=== PATIENT | male | born 2005 | race Caucasian/White ===

== ENCOUNTER 2024-06-02 02:58 | Inpatient (IN) | payer MEDICAID, SELFPAY ==
[2024-06-02] VITALS (52 sets, daily range): BP systolic 116–144; BP diastolic 66–98; PULSE 70–104; RESP 10–28; TEMP 36.6–36.9; O2SAT 84–99; BMI 33.6
[2024-06-02] MEDS: sodium chloride 0.9% 1,000 ML 999 ML IV (03:15)
--- NOTE | 2024-06-02 03:18 | ED_ITS ---
HPI - Overdose 2 General: Chief Complaint: Psychiatric Symptoms Stated Complaint: OD Time Seen by Provider: 06/02/24 03:01 History of Present Illness: 18-year-old male with a history of menta l illness. Presents after having taken 30 paroxetine 30 mg pills sometime between 10 and 11 PM. He complains of nausea, some stomach pain, and some chest discomfort. He notes that he has been hearing voices. These voices evidently telling him to hurt himself and other people. He has some abrasions on his left forearm. He says that despite taking the medication he is still hearing the voices. Related Data Allergies Allergy/AdvReac Type Severity Reaction Status Date / Time No Known Allergies Allergy Verified 06/02/24 03:25 Physical Exam 2 Const: COMMON NORMALS: no acute distress GENERAL APPEARANCE: cooperative; not ill appearing and not frail appearing HENMT: COMMON NORMALS: normocephalic, atraumatic and Normal external nose present HEAD & SCALP: normocephalic and atraumatic FACE & SINUS: normal facial exam and face symmetric NOSE: Normal external nose present Eye: COMMON NORMALS: Equal, round and reactive pupils present and EOMs intact bilaterally PUPIL: Yes Equal, round and reactive pupils present Neck/C-Spine: GENERAL: Yes trachea midline Chest: CHEST: Yes Symmetrical chest wall rise Resp: COMMON NORMALS: normal respiratory effort, No retractions, No use of accessory muscles and clear to auscultation bilaterally AUSCULTATION: clear to auscultation bilaterally Cardio: COMMON NORMALS: regular rate and regular rhythm RATE: regular rate RHYTHM: regular rhythm GI: COMMON NORMALS: Normal to inspection, nondistended, normoactive bowel sounds present Extremity: COMMON NORMALS: no pedal edema Neuro: JACOB COMA SCALE: document GCS findings Jacob coma scale eye opening: Spontaneous [place] coma scale verbal response: Orientated [place] coma scale motor response: Obey commands Jacob coma scale total score: 15 S ENSORY EXAM: Yes extremities (intact) Psych: COMMON NORMALS: speech normal SPEECH: Yes normal speech Skin: COMMON NORMALS: no rashes or lesions noted GENERAL SKIN EXAM: no rashes or lesions noted Course 2 Vital Signs: Vital signs: Vital Signs Temperature 97.9 F 06/02/24 03:20 Pulse Rate 90 06/02/24 03:53 Respiratory Rate 25 H 06/02/24 03:53 Blood Pressure 125/94 06/02/24 03:53 Pulse Oximetry 95 06/02/24 03:53 Oxygen Delivery Me thod Room Air 06/02/24 03:53 MDM - Overdose Medical Decision Making 18-year-old male intentionally overdosed on paroxetine. Approximately 900 mg, or a 30-day supply of paroxetine. Poison control contacted by nursing. The recommendations are supportive care. Patient is now having visual hallucinations as well. He is given lorazepam for this. He will have to go to the ICU for observation and medical clearance prior to psychiatric evaluation. Spoke with hospitalist who agrees to admission. Lab Data 06/02/24 02:25 06/02/24 02:25 Laboratory Results WBC 6.95 10^3/uL (4.5-13.0) 06/02/24 02:25 RBC 4.86 10^6/uL (3.85-5.65) 06/02/24 02:25 Hgb 14.10 g/dL (13.2-15.6) 06/02/24 02:25 Hct 40.4 % (37-53) 06/02/24 02:25 MCV 83.1 fl (82-101) 06/02/24 02:25 MCH 29.0 pg (27-33) 06/02/24 02:25 MCHC 34.9 g/dL (30-55) 06/02/24 02:25 RDW 12.8 % (12.1-15.1) 06/02/24 02:25 Plt Count 195 10^3/cmm (157-399) 06/02/24 02:25 MPV 9.4 fL (7.4-10.4) 06/02/24 02:25 Neut % (Auto) 51.5 % 06/02/24 02:25 Lymph % (Auto) 35.7 % 06/02/24 02:25 [place] % (Auto) 9.1 % 06/02/24 02:25 Eos % (Auto) 2.7 % 06/02/24 02:25 Baso % (Auto) 0.7 % 06/02/24 02:25 Neut # (Auto) 3.58 10^3/uL (1.8-8.0) 06/02/24 02:25 Lymph # (Auto) 2.5 10^3/uL (1.5-6.5) 06/02/24 02:25 [place] # (Auto) 0.6 10^3/uL (0.2-0.9) 06/02/24 02:25 Eos # (Auto) 0.2 10^3/uL (0.0-0.8) 06/02/24 02:25 Baso # (Auto) 0.1 10^3/uL (0.0-0.1) 06/02/24 02:25 Nucleated RBC % (auto) 0 % 06/02/24 02:25 Nucleated RBCs # 0.0 /100WBC 06/02/24 02:25 No radiology studies performed this visit Discharge Plan Discharge Patient Disposition: Placed in Observation Clinical Impression: Intentional overdose Condition: Stable Coding Level of Care Code ED Weed Controller for Iron Mcconnell
[2024-06-02 03:29] LABS: Basophils # 0.1 10^3/uL (0.0-0.1); Basophils % 0.7 %; Eosinophils # 0.2 10^3/uL (0.0-0.8); Eosinophils % 2.7 %; Hematocrit 40.4 % (37-53); Lymphocytes # 2.5 10^3/uL (1.5-6.5); Lymphocytes % 35.7 %; Mean Corpuscular HGB Conc 34.9 g/dL (30-55); Mean Corpuscular Volume 83.1 fl (82-101); Mean Platelet Volume 9.4 fL (7.4-10.4); Monocytes # 0.6 10^3/uL (0.2-0.9); Monocytes % 9.1 %; Neutrophils # 3.58 10^3/uL (1.8-8.0); Neutrophils % 51.5 %; Nucleated Red Blood Cells % 0 %; Platelet Count 195 10^3/cmm (157-399); Red Blood Count 4.86 10^6/uL (3.85-5.65); Red Cell Distribution Width 12.8 % (12.1-15.1); White Blood Count 6.95 10^3/uL (4.5-13.0)
--- NOTE | 2024-06-02 03:31 | PC.NURSE ---
poison control called at this time and info will be faxed.
[2024-06-02] MEDS: LORazepam 2 mg/mL INJ 1 mL IVP (03:51)
--- NOTE | 2024-06-02 03:58 | P.HP_ITS ---
Providers/Chief Complaint 2 Chief Complaint: OD History of Present Illness Dada Mariscal is a 18 year old male with a past medical history significant for anxiety, depression, and tobacco use disorder who presents to the emergency department with with intentional drug overdose. Patient endorses taking 30 tablets of Paxil 30 mg last night around 10 PM. He states he was intending to try to kill himself. He reports he has been hearing voices since childhood telling him to hurt himself and hurt others. These voices of the reason he took the overdose. He endorses a history of anxiety and depression. He states he takes 4 medications of which 1 is Paxil. He does not recall the other medication names at this time. He endorses associated symptoms of visual hallucinations. He denies alleviating or aggravating factors. He reports a history of self-harm and prior suicide attempt. He is unable to recall the details surrounding his prior suicide attempt. Patient denies any known chronic medical conditions. Endorses a personal history of anxiety and depression. Denies prior surgeries. He reports a positive family history on both maternal and paternal side for numerous mental health conditions. He is unsure which relative had which condition but states that anxiety, depression, borderline personality disorder, bipolar disorder, and schizophrenia run in his family. Denies known family history of suicide attempts. He reports that he does smoke about 4 cigarettes a day and vapes as well. Denies alcohol or drug abuse. Review of Systems 2 Narrative: A complete review of systems was obtained and is negative except as stated in HPI. Medications/Allergies Allergies Allergy/AdvReac Type Severity Reaction Status Date / Time No Known Allergies Allergy Verified 06/02/24 03:25 PFSH Acute 2 PFSH: Medical History Tobacco use disorder Depression Anxiety Surgical History No pertinent past surgical history Family History Other Bipolar disorder Depression Schizophrenia Social History Smoking and tobacco/nicotine status: current every day tobacco/nicotine user Alcohol intake: never Substance/Drug Use: never Vitals/I&O/Wt Last Vital Signs Temp 97.9 F 06/02/24 03:20 Pulse 90 06/02/24 03:53 Resp 25 H 06/02/24 03:53 BP 125/94 06/02/24 03:53 Pulse Ox 95 06/02/24 03:53 O2 Del Method Room Air 06/02/24 03:53 Weight last 48 hrs Weight 97.522 kg Physical Exam 2 Narrative: General: Patient is awake. Head: Normocephalic. Atraumatic. EOM intact. Neck: No JVD. Cardiovascular: RRR. No gallops. No murmurs. No peripheral edema. Lungs: Clear to auscultation, no use of accessory muscles, no crackles or wheezes. Skin: No jaundice. No rashes. Abdomen: Normal bowel sounds, abdomen soft and nontender. Genito Urinary: Genital exam not performed since complaints not related. Rectal: Rectal exam not performed since no symptoms indicated blood loss. Extremities: No cyanosis or clubbing. Musculoskeletal: 5/5 strength, normal range of motion, no swollen or erythematous joints. Neurological: Moves all 4 extremities. No myoclonus. Data 06/02/24 02:25 06/02/24 02:25 A&P Assessment and plan (1) Intentional overdose: Intentional drug overdose with Paxil Obtain EKG Continuous telemetry monitoring Admit to the intensive care unit for continuous cardiopulmonary monitoring Suicide precautions Poison control contacted 96-hour hold initiated by ER Psychiatry consult Qualifiers: Encounter type: initial encounter Qualified Code(s): T50.902A - Poisoning by unspecified drugs, medicaments and biological substances, intentional self-harm, initial encounter (2) Hallucinations: Suspect underlying psychiatric illness Avoid antipsychotics for now due to risk of QTc prolongation Supportive care Pysch consult (3) Depression: As above (4) Anxiety: As above (5) Tobacco use disorder: Would benefit from cessation Can use NRT if needed Plan DVT ppx: Lovenox Code: Full Code Attestations 2 Medical Necessity Statement*: Patient presents w/ intentional SSRI overdose due to reported hallucinations with expected hospitalization not to cross two midnights for IV fluids, telemetry monitoring, psychiatory evaluation and supportive care. Coding Level of Care Code Acute Code for Chg Fwd Diagnoses Intentional overdose T50.902A Encounter type: initial encounter Hallucinations R44.3 Depression F32.A Anxiety F41.9 Tobacco use disorder F17.200
[2024-06-02 04:00] LABS: Add Urine Microscopic? NO
--- NOTE | 2024-06-02 04:00 | PC.NURSE ---
96 Hour Involuntary Hold Patient Rights have been read to the patient and a copy of the same has been given to him. Patient verbalizes understanding of said Rights.
[2024-06-02 04:04] LABS: Alanine Aminotransferase 33 U/L (0-41); Albumin Level 4.4 g/dL (3.5-5.2); Alkaline Phosphatase 85 U/L (40-130); Anion Gap 15.2 (5-19); Aspartate Amino Transferase 21 U/L (0-40); Blood Urea Nitrogen 9 mg/dL (6-20); Carbon Dioxide 26 mmol/L (22-29); Chloride 101 mmol/L (98-107); Creatinine Clr Calc Pharmacy 163.8933; Globulin 2.6 g/dL (1.3-4.6); Glomerular Filtration Rate 123.2 mL/min (90-130); Glucose 95 mg/dL (65-115); Osmolality Calculated 286 mOsm/kg (285-295); Potassium 3.2 mmol/L (3.5-5.1); Sodium 139 mmol/L (136-145); Thyroid Stimulating Hormone 5.75 uIU/mL (0.27-4.20); Total Bilirubin 0.2 mg/dL (0.15-1.2)
[2024-06-02 04:09] LABS: Acetaminophen < 5.0 ug/mL (10-30); Alcohol Level < 10 mg/dL (0-10); Salicylate < 0.3 mg/dL (3-10)
[2024-06-02 04:10] LABS: Bilirubin Urine Neg (Negative); Blood Urine Neg (Negative); Charge for UA Resulting for Rev; Glucose Urine UA Norm (Normal); Ketones Urine Negative (Negative); Leukocyte Esterase Urine Negative (Negative); Nitrate Urine Negative (Negative); Protein Urine Neg (Negative); Specific Gravity, Urine 1.015 (1.005-1.030); Urine Appearance Clear (CLEAR); Urine Color Yellow (Yellow); Urobilinogen Urine Norm (Negative); pH Urine 5 (5-7)
[2024-06-02 04:13] LABS: Amphetamines Screen Urine Negative (Negative); Barbiturates Screen Urine Negative (Negative); Benzodiazepines Screen Urine Negative (Negative); Cocaine Screen Urine Negative (Negative); Opiate Screen Urine Negative (Negative); PCP Screen Urine Negative (Negative); THC Screen Urine Positive (Negative)
--- NOTE | 2024-06-02 04:51 | ECG_ITS ---
[facility] Test Date: 2024-06-02 Pat Name: Dada Mariscal Department: Room: [facility]02 Gender: Male Nursing Director: : 2005 Requested By: Ubaldo Fisher Order Number: [id number] Meir MD: Navjot Tanner M.D. Measurements Intervals [place] Rate: 83 P: 27 PA: 143 QRS: 58 QRSD: 118 T: 64 QT: 366 QTc: 431 Interpretive Statements SINUS RHYTHM MODERATE INTRAVENTRICULAR CONDUCTION DELAY [110+ ms QRS DURATION] No previous ECG available for comparison Electronically Signed On 06-02-2024 16:07:12 CDT by Navjot Tanner M.D. [email or web address] Caremagnolia regional health centerEagle Eye Solutionsmercy health – the jewish hospitalRail Yard/store/OM/[id number]
--- NOTE | 2024-06-02 11:52 | W.PM.EVENTAC ---
Event Note Event Note: I will request another EKG to keep an eye on a QT intervals Patient is awake and alert However endorsing nausea, as per the nursing staff patient has been more drowsy But able to answer all my questions Patient is stating that he was at [facility] for 7 days inpatient then was released home with paroxetine Patient is still endorsing auditory hallucinations Stating that he gets upset when he hears voices to hurt other people Continue 96-hour hold Changed to inpatient I will request magnesium level, another EKG, would use Ativan on as-needed basis No active signs of serotonin syndrome no myoclonus, Patient endorsing nausea Monitor 1 more day in the ICU, start IV fluids
--- NOTE | 2024-06-02 13:01 | ECG_ITS ---
[facility] Test Date: 2024-06-02 Pat Name: Dada Mariscal Department: Room: [facility]04 Gender: Male [employer]: : 2005 Requested By: Dorene Vale Order Number: [id number] Meir MD: Navjot Tanner M.D. Measurements Intervals [place] Rate: 91 P: 37 [place]: 141 QRS: 32 QRSD: 114 T: 46 QT: 348 QTc: 429 Interpretive Statements SINUS RHYTHM MODERATE INTRAVENTRICULAR CONDUCTION DELAY [110+ ms QRS DURATION] Compared to ECG 06/02/2024 04:51:36 No significant changes Electronically Signed On 06-02-2024 16:08:38 CDT by Navjot Tanner M.D. [email or web address].[employer]/store/[id number]
[2024-06-02] MEDS: sodium chloride 0.9% 1,000 ML 75 ML IV (15:53)
[2024-06-02] MEDS: nicotine 4 mg lozenge MUCOUS MEM ×2 (16:15→21:33)
--- NOTE | 2024-06-02 18:11 | PC.NURSE ---
Pt has had multiple episodes of incontinence this shift. Nystagmus noted intermittently. All belongings and medications placed in Locker.
[2024-06-03] VITALS (21 sets, daily range): BP systolic 106–139; BP diastolic 72–94; PULSE 60–121; RESP 16–23; TEMP 36.3–36.9; O2SAT 88–98; BMI 32.7
[2024-06-03 05:02] LABS: Basophils % 0.5 %; Eosinophils # 0.2 10^3/uL (0.0-0.8); Eosinophils % 3.2 %; Hematocrit 39.9 % (37-53); Lymphocytes % 32.7 %; Mean Corpuscular HGB Conc 34.3 g/dL (30-55); Mean Corpuscular Hemoglobin 28.7 pg (27-33); Mean Corpuscular Volume 83.6 fl (82-101); Mean Platelet Volume 9.5 fL (7.4-10.4); Monocytes # 0.5 10^3/uL (0.2-0.9); Monocytes % 8.2 %; Neutrophils # 3.42 10^3/uL (1.8-8.0); Neutrophils % 55.1 %; Nucleated Red Blood Cells % 0 %; Platelet Count 194 10^3/cmm (157-399); Red Blood Count 4.77 10^6/uL (3.85-5.65); Red Cell Distribution Width 12.7 % (12.1-15.1); White Blood Count 6.21 10^3/uL (4.5-13.0)
[2024-06-03 05:22] LABS: Anion Gap 15.1 (5-19); Blood Urea Nitrogen 7 mg/dL (6-20); Calcium 8.9 mg/dL (8.5-10.5); Carbon Dioxide 26 mmol/L (22-29); Chloride 104 mmol/L (98-107); Creatinine Clr Calc Pharmacy 163.8933; Glomerular Filtration Rate 123.2 mL/min (90-130); Glucose 90 mg/dL (65-115); Magnesium 1.7 mg/dL (1.7-2.3); Osmolality Calculated 290 mOsm/kg (285-295); Potassium 4.1 mmol/L (3.5-5.1); Sodium 141 mmol/L (136-145)
[2024-06-03] MEDS: sodium chloride 0.9% 1,000 ML 75 ML IV (05:28)
--- NOTE | 2024-06-03 09:23 | PC.NURSE ---
Pt has denied pain, SI/HI or hallucinations this shift. Pt has been pleasant. Transfer orders to NPU received. Report called to Christine.
--- NOTE | 2024-06-03 09:40 | PC.NURSE ---
Pt admitted to hearing voices upon discharge. Voices are telling him to hurt himself and to hurt others. States he started hearing the voices at 10 year of age and sought help from a school counselor. IV removed. Tip intact. Site unremarkable. Pt transferred to NPU escorted by security. Transfer without incident.
[2024-06-03] MEDS: nicotine 4 mg lozenge MUCOUS MEM ×4 (09:48→16:06)
[2024-06-03] MEDS: ziprasidone hcl 60 mg Capsule PO (14:34)
--- NOTE | 2024-06-03 15:35 | PC.NURSE ---
Patient arrived to the unit very manic. Patient immediately standing up and walking around unit. He states that he attempted suicide via overdose of 900mg paxil due to his father feeling mad at other people not teaching him things he feels he should know how to do when he was in [facility]. He has previous suicide attempts via cutting and hanging. He states the most recent one was 10 months ago when he was in a psychiatric facility and he had another patient helped him. Patient endorses avh where he says he hears music and comes up with songs and sees demons without eyes. He says he believes that his family may be involved in witchcraft and this is why. He endorses smoking marijuana frequently in joint and wax form. He also smokes tobacco daily via vape. Patient had a lot of trouble staying on topic and would often make strange movements as if he were interacting with someone/something. Patient was cooperative with assessment though.
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
[2024-06-03] MEDS: trazodone 50 mg Tablet PO (21:21)
[2024-06-03] MEDS: risperiDONE 2 mg Tablet PO (21:21)
[2024-06-03] MEDS: haloperidol 5 mg Tablet PO (21:21)
[2024-06-03] MEDS: doxepin 50 mg Capsule PO (21:21)
[2024-06-03] MEDS: OLANZapine 5 mg ODT PO (23:19)
[2024-06-04 06:00] VITALS: BP 121/68; PULSE 67; RESP 18; TEMP 36.4; O2SAT 98
[2024-06-04] MEDS: nicotine 4 mg lozenge MUCOUS MEM ×6 (06:37→19:41)
[2024-06-04] MEDS: ziprasidone hcl 60 mg Capsule PO ×2 (07:46→17:11)
[2024-06-04] MEDS: pantoprazole DR 40 mg Tablet PO (07:46)
[2024-06-04] MEDS: risperiDONE 2 mg Tablet PO ×2 (07:46→19:57)
[2024-06-04 14:00] VITALS: BP 110/69; PULSE 104; RESP 17; TEMP 36.4; O2SAT 96
[2024-06-04 19:54] VITALS: BP 98/66; PULSE 100; RESP 18; TEMP 36.6; O2SAT 96
[2024-06-04] MEDS: doxepin 50 mg Capsule PO (19:57)
--- NOTE | 2024-06-04 20:26 | P.NPUPN_ITS ---
Subjective NPU 2 Subjective: Patient presented today reporting that he has been on lots of medications. We discussed cleaning up his regimen and having significant concerns that part of his challenges that he has cluster B pathology and probably need some significant DBT. We discussed the risk benefits and alternatives of changing him over to Invega as his primary medication for mood stabilization. And then taking a look at some different antidepressant. He denied any side effects to his medication. Mental Status Exam 2 MSE Comments: This is an obese white male in hospital scrubs with poor grooming and fair eye contact with hair notably dyed green. No abnormal movements except for mild psychomotor agitation. He mostly somewhat cooperative with exam in mild to moderate distress. Speech was slightly decreased rate and normal in volume. Mood described as okay. His affect was subdued. Thought process was mostly organized. Thought content: Patient denied suicidal or homicidal ideation. There were no delusions reported but odd thinking and concerns for minimalization of his delusional thoughts, he endorsed auditory but denied visual hallucinations. The patient reports hearing voices, sometimes from a distance and sometimes close by. The patient also reports symptoms of depression, anxiety, and paranoia. The patient has a history of self-harm and suicide attempts. The patient also reports intrusive thoughts and attachment issues.Attention and concentration were poor and his recent and remote memory was limited versus impaired, but none were formally tested. He is alert and oriented x 3, Insight and judgment are limited. Impulse control is impaired. Vitals/I&O/Wt Last Vital Signs Temp 97.9 F 06/04/24 19:54 Pulse 100 06/04/24 19:54 Resp 18 06/04/24 19:54 BP 98/66 06/04/24 19:54 Pulse Ox 96 06/04/24 19:54 O2 Del Method Room Air 06/04/24 06:00 Weight last 48 hrs Weight 94.801 kg Data NPU 06/03/24 04:10 06/03/24 04:10 A&P Assessment and plan (1) Intentional overdose: Qualifiers: Encounter type: initial encounter Qualified Code(s): T50.902A - Poisoning by unspecified drugs, medicaments and biological substances, intentional self-harm, initial encounter (2) Anxiety: (3) Hallucinations: (4) Tobacco use disorder: (5) Cannabis use disorder: (6) Cluster B personality disorder in adult: (7) Major depressive disorder, recurrent: (8) PTSD (post-traumatic stress disorder): Plan This is a 18-year-old white male with a long history of mental health issues, trauma and psychiatric care who presents after being discharged from another psychiatric facility and taken an overdose essentially returning almost immediately to the hospital now being transferred to the neuropsychiatric unit from the ICU. The patient has a complex mental health history with symptoms of psychosis, depression, and anxiety. The patient's mental health appears to be unstable, with recent suicide attempts and hospitalizations. The patient's medication regimen may need adjustment, as they report that their body often stops responding to medication. 1. Continue current medication. Will cross titrate Risperdal and Invega discontinuing the bedtime dose of Risperdal and starting Invega 3 mg p.o. at bedtime. Will discontinue morning dose of Geodon. 2. Encourage individual, group and milieu therapies. 3. Encourage sober living treatment after discharge at the highest level care to which he is willing to commit. 4. Obtain collateral information. 5. Continue every 15 minute checks for safety. Involuntary Hold Information 2 96 Hour Hold: 96 Hour Involuntary Admission: Yes 96 Hour Hold Ending Date: 06/06/24 96 Hour Hold Ending Time: 03:35 Attestations NPU 2 Medical Necessity Statement*: Inpatient hospitalization is medically necessary and?the clinically appropriate intervention at this time.? We will monitor/initiate medications and make changes as indicated.? Likely length of stay 4-6 days.. Coding Level of Care Code Acute Code for Chg Fwd Diagnoses Intentional overdose T50.902A Encounter type: initial encounter Anxiety F41.9 Hallucinations R44.3 Tobacco use disorder F17.200 Cannabis use disorder F12.90 Cluster B personality disorder in adult F60.9 Major depressive disorder, recurrent F33.9 PTSD (post-traumatic stress disorder) F43.10
[2024-06-04] MEDS: quetiapine 25 mg Tablet 50 MG PO (20:46)
[2024-06-05 06:00] VITALS: BP 109/72; PULSE 66; RESP 16; O2SAT 97
[2024-06-05] MEDS: ziprasidone hcl 60 mg Capsule PO ×2 (06:05→16:56)
[2024-06-05] MEDS: haloperidol 5 mg Tablet PO (08:35)
[2024-06-05] MEDS: nicotine 4 mg lozenge MUCOUS MEM ×5 (08:36→18:43)
[2024-06-05] MEDS: risperiDONE 2 mg Tablet PO (08:36)
[2024-06-05] MEDS: pantoprazole DR 40 mg Tablet PO (08:36)
--- NOTE | 2024-06-05 09:41 | PC.NURSE ---
PT IN ROOM, APPEARS ANXIOUS. STATES ITS BECAUSE I'M STILL HEARING VOICES AND SEEING SHADOWS. PT WAS GIVEN HALDOL 5 MG ORDERED FOR INCREASED ANXIETY DUE TO VOICES AND SHADOWS. REPORTS HE SLEPT WELL LAST NIGHT. RATES ANXIETY 6/10 AND DEPRESSIO 3/10. DENIES SI/HI AT THIS TIME. DOES STATE HE HAD SUICIDAL THOUGHTS YESTERDAY BUT NOT TODAY. RATES PAIN 6/10 IN STOMACH STATES HE DOES NOT WANT ANYTHING ITS FROM THE OVERDOSE. PT WAS EDUCATED HE IS ON PROTONIX BUT IF IT DOES NOT HELP TO LET RN KNOW. PT STATES HE HAS NO GOAL FOR THE DAY. ALL QUESTIONS ANSWERED AND SUPPORT WAS VOICED. PT IS NOTED TO HAVE A FLAT AFFECT AND WITHDRAWN TO ROOM WITH LITTLE INTERACTION WITH PEERS AND STAFF.
[2024-06-05 10:04] VITALS: PULSE 87; RESP 16; O2SAT 99
[2024-06-05 14:00] VITALS: BP 124/82; PULSE 114; RESP 18; TEMP 36.4; O2SAT 97
--- NOTE | 2024-06-05 18:35 | P.NPUPN_ITS ---
Subjective NPU 2 Subjective: Patient presented today reporting that he is tolerating the medication changes thus far. He denied any side effects to the medication. He reports that he is adjusting to the unit fine we continue to discuss the plans for medication as well as diagnoses and concerns for cluster B pathology as the main contributor to his challenging history. Mental Status Exam 2 MSE Comments: This is an obese white male in hospital scrubs with poor grooming and fair eye contact with hair notably dyed green. No abnormal movements except for mild psychomotor agitation. He mostly somewhat cooperative with exam in mild to moderate distress. Speech was slightly decreased rate and normal in volume. Mood described as okay. His affect was subdued. Thought process was mostly organized. Thought content: Patient denied suicidal or homicidal ideation. There were no delusions reported but odd thinking and concerns for minimalization of his delusional thoughts, he endorsed auditory but denied visual hallucinations. The patient reports hearing voices, sometimes from a distance and sometimes close by. The patient also reports symptoms of depression, anxiety, and paranoia. The patient has a history of self-harm and suicide attempts. The patient also reports intrusive thoughts and attachment issues.Attention and concentration were poor and his recent and remote memory was limited versus impaired, but none were formally tested. He is alert and oriented x 3, Insight and judgment are limited. Impulse control is impaired. Vitals/I&O/Wt Last Vital Signs Temp 98.2 F 06/05/24 19:22 Pulse 78 06/05/24 19:22 Resp 15 06/05/24 19:22 BP 98/64 06/05/24 19:22 Pulse Ox 98 06/05/24 19:22 O2 Del Method Room Air 06/05/24 19:22 Data NPU 06/03/24 04:10 06/03/24 04:10 A&P Assessment and plan (1) Intentional overdose: Qualifiers: Encounter type: initial encounter Qualified Code(s): T50.902A - Poisoning by unspecified drugs, medicaments and biological substances, intentional self-harm, initial encounter (2) Anxiety: (3) Hallucinations: (4) Tobacco use disorder: (5) Cannabis use disorder: (6) Cluster B personality disorder in adult: (7) Major depressive disorder, recurrent: (8) PTSD (post-traumatic stress disorder): Plan This is a 18-year-old white male with a long history of mental health issues, trauma and psychiatric care who presents after being discharged from another psychiatric facility and taken an overdose essentially returning almost immediately to the hospital now being transferred to the neuropsychiatric unit from the ICU. The patient has a complex mental health history with symptoms of psychosis, depression, and anxiety. The patient's mental health appears to be unstable, with recent suicide attempts and hospitalizations. The patient's medication regimen may need adjustment, as they report that their body often stops responding to medication. 1. Continue current medication. Will cross titrate Risperdal and Invega discontinuing the bedtime dose of Risperdal and starting Invega 3 mg p.o. at bedtime. Will discontinue morning dose of Geodon. Will likely discontinue Risperdal altogether on Sunday and increase Invega to 6 mg p.o. nightly then. 2. Encourage individual, group and milieu therapies. 3. Encourage sober living treatment after discharge at the highest level care to which he is willing to commit. 4. Obtain collateral information. 5. Continue every 15 minute checks for safety. Involuntary Hold Information 2 96 Hour Hold: 96 Hour Involuntary Admission: Yes 96 Hour Hold Ending Date: 06/06/24 96 Hour Hold Ending Time: 03:35 Attestations NPU 2 Medical Necessity Statement*: Inpatient hospitalization is medically necessary and?the clinically appropriate intervention at this time.? We will monitor/initiate medications and make changes as indicated.? Likely length of stay 4-6 days.. Coding Level of Care Code Acute Code for g Fwd Diagnoses Intentional overdose T50.902A Encounter type: initial encounter Anxiety F41.9 Hallucinations R44.3 Tobacco use disorder F17.200 Cannabis use disorder F12.90 Cluster B personality disorder in adult F60.9 Major depressive disorder, recurrent F33.9 PTSD (post-traumatic stress disorder) F43.10
[2024-06-05 19:22] VITALS: BP 117/65; PULSE 124; RESP 16; TEMP 36.8; O2SAT 98
[2024-06-05] MEDS: paliperidone ER 3 mg Tablet PO (20:03)
[2024-06-05] MEDS: doxepin 50 mg Capsule PO (20:03)
[2024-06-05] MEDS: quetiapine 25 mg Tablet 50 MG PO (20:03)
[2024-06-05] MEDS: trazodone 50 mg Tablet PO (20:04)
[2024-06-06 05:54] VITALS: BP 98/64; PULSE 78; RESP 15; O2SAT 98
[2024-06-06] MEDS: ziprasidone hcl 60 mg Capsule PO ×2 (06:19→17:51)
--- NOTE | 2024-06-06 07:40 | P.NPUPN_ITS ---
Subjective NPU 2 Subjective: Patient presented today reporting that he was doing okay. He endorsed he was doing okay with the medication changes and identified for the first time that he wanted to go ahead and [facility]. He did identified that he had gotten the long-acting injectable at the last hospitalization but only had one of the injections meaning that he needed the second injection but did not receive it. We agreed that we would reach out to them and try to figure out what the date of that was to determine what we need to do about a loading dose injection and when the next injection would be due. That would also change our situation moving away from all oral antipsychotics we discussed. He denied any side effects to the medication. Mental Status Exam 2 MSE Comments: This is an obese white male in hospital scrubs with poor grooming and fair eye contact with hair notably dyed green. No abnormal movements except for mild psychomotor agitation. He mostly somewhat cooperative with exam in mild to moderate distress. Speech was slightly decreased rate and normal in volume. Mood described as okay. His affect was less subdued. Thought process was mostly organized. Thought content: Patient denied suicidal or homicidal ideation. There were no delusions reported but odd thinking and concerns for minimalization of his delusional thoughts, he endorsed auditory but denied visual hallucinations. The patient reports hearing voices, sometimes from a distance and sometimes close by. The patient also reports symptoms of depression, anxiety, and paranoia. The patient has a history of self-harm and suicide attempts. The patient also reports intrusive thoughts and attachment issues.Attention and concentration were poor and his recent and remote memory was limited versus impaired, but none were formally tested. He is alert and oriented x 3, Insight and judgment are limited. Impulse control is impaired. Vitals/I&O/Wt Last Vital Signs Temp 98.2 F 06/05/24 19:22 Pulse 78 06/06/24 05:54 Resp 15 06/06/24 05:54 BP 98/64 06/06/24 05:54 Pulse Ox 98 06/06/24 05:54 O2 Del Method Room Air 06/06/24 05:54 Data NPU 06/03/24 04:10 06/03/24 04:10 A&P Assessment and plan (1) Intentional overdose: Qualifiers: Encounter type: initial encounter Qualified Code(s): T50.902A - Poisoning by unspecified drugs, medicaments and biological substances, intentional self-harm, initial encounter (2) Anxiety: (3) Hallucinations: (4) Tobacco use disorder: (5) Cannabis use disorder: (6) Cluster B personality disorder in adult: (7) Major depressive disorder, recurrent: (8) PTSD (post-traumatic stress disorder): Plan This is a 18-year-old white male with a long history of mental health issues, trauma and psychiatric care who presents after being discharged from another psychiatric facility and taken an overdose essentially returning almost immediately to the hospital now being transferred to the neuropsychiatric unit from the ICU. The patient has a complex mental health history with symptoms of psychosis, depression, and anxiety. The patient's mental health appears to be unstable, with recent suicide attempts and hospitalizations. The patient's medication regimen may need adjustment, as they report that their body often stops responding to medication. 1. Continue current medication. Will cross titrate Risperdal and Invega discontinuing the bedtime dose of Risperdal and starting Invega 3 mg p.o. at bedtime. Will discontinue morning dose of Geodon. Will discontinue Risperdal altogether on Sunday and increase Invega to 6 mg p.o. nightly then. Get collateral information on the possibility he had the first Invega injection but not the second for loading possibly prior to discharge from his last hospitalization a week or so ago. 2. Encourage individual, group and milieu therapies. 3. Encourage sober living treatment after discharge at the highest level care to which he is willing to commit. 4. Obtain collateral information. 5. Continue every 15 minute checks for safety. Involuntary Hold Information 2 96 Hour Hold: 96 Hour Involuntary Admission: Yes 96 Hour Hold Ending Date: 06/06/24 96 Hour Hold Ending Time: 03:35 Attestations NPU 2 Medical Necessity Statement*: Inpatient hospitalization is medically necessary and?the clinically appropriate intervention at this time.? We will monitor/initiate medications and make changes as indicated.? Likely length of stay 4-6 days.. Coding Level of Care Code Acute Code for g Fwd Diagnoses Intentional overdose T50.902A Encounter type: initial encounter Anxiety F41.9 Hallucinations R44.3 Tobacco use disorder F17.200 Cannabis use disorder F12.90 Cluster B personality disorder in adult F60.9 Major depressive disorder, recurrent F33.9 PTSD (post-traumatic stress disorder) F43.10
[2024-06-06] MEDS: risperiDONE 2 mg Tablet PO (09:30)
[2024-06-06] MEDS: pantoprazole DR 40 mg Tablet PO (09:30)
[2024-06-06] MEDS: nicotine 4 mg lozenge MUCOUS MEM ×4 (12:36→20:53)
[2024-06-06 14:00] VITALS: BP 128/78; PULSE 116; RESP 17; TEMP 36.9; O2SAT 95
[2024-06-06] MEDS: quetiapine 25 mg Tablet 50 MG PO (20:27)
[2024-06-06] MEDS: paliperidone ER 3 mg Tablet PO (20:27)
[2024-06-06] MEDS: doxepin 50 mg Capsule PO (20:27)
[2024-06-06 20:59] VITALS: BP 122/75; PULSE 118; RESP 18; TEMP 36.9; O2SAT 95
[2024-06-06] MEDS: OLANZapine 5 mg ODT PO (21:44)
[2024-06-07 06:00] VITALS: BP 112/71; PULSE 95; RESP 17; TEMP 36.7; O2SAT 95
[2024-06-07] MEDS: ziprasidone hcl 60 mg Capsule PO ×2 (06:40→17:33)
[2024-06-07] MEDS: nicotine 4 mg lozenge MUCOUS MEM ×7 (06:44→21:38)
[2024-06-07] MEDS: risperiDONE 2 mg Tablet PO (08:18)
[2024-06-07] MEDS: pantoprazole DR 40 mg Tablet PO (08:18)
--- NOTE | 2024-06-07 08:45 | P.NPUPN_ITS ---
Subjective NPU 2 Subjective: Patient presented today reporting that he is doing okay. He continues to be focused on his vision to [employer]. We continue to discuss getting his medications in the right place so that he can succeed there. We talked about the likelihood of discharge next week and that Dr. Hopper would be here to make that decision. He denied any side effects of the medications or any issues with the changes. Mental Status Exam 2 MSE Comments: This is an obese white male in hospital scrubs with poor grooming and fair eye contact with hair notably dyed green. No abnormal movements except for mild psychomotor agitation. He mostly cooperative with exam in mild to moderate distress. Speech was slightly decreased rate and normal in volume. Mood described as okay. His affect was less subdued. Thought process was mostly organized. Thought content: Patient denied suicidal or homicidal ideation. There were no delusions reported but odd thinking and concerns for minimalization of his delusional thoughts, he endorsed auditory but denied visual hallucinations. The patient reports hearing voices, sometimes from a distance and sometimes close by. The patient also reports symptoms of depression, anxiety, and paranoia. The patient has a history of self-harm and suicide attempts. The patient also reports intrusive thoughts and attachment issues.Attention and concentration were poor and his recent and remote memory was limited versus impaired, but none were formally tested. He is alert and oriented x 3, Insight and judgment are limited. Impulse control is impaired. Vitals/I&O/Wt Last Vital Signs Temp 98.0 F 06/07/24 06:00 Pulse 95 06/07/24 06:00 Resp 17 06/07/24 06:00 BP 112/71 06/07/24 06:00 Pulse Ox 95 06/07/24 06:00 O2 Del Method Room Air 06/06/24 05:54 Data NPU 06/03/24 04:10 06/03/24 04:10 A&P Assessment and plan (1) Intentional overdose: Qualifiers: Encounter type: initial encounter Qualified Code(s): T50.902A - Poisoning by unspecified drugs, medicaments and biological substances, intentional self-harm, initial encounter (2) Anxiety: (3) Hallucinations: (4) Tobacco use disorder: (5) Cannabis use disorder: (6) Cluster B personality disorder in adult: (7) Major depressive disorder, recurrent: (8) PTSD (post-traumatic stress disorder): Plan This is a 18-year-old white male with a long history of mental health issues, trauma and psychiatric care who presents after being discharged from another psychiatric facility and taken an overdose essentially returning almost immediately to the hospital now being transferred to the neuropsychiatric unit from the ICU. The patient has a complex mental health history with symptoms of psychosis, depression, and anxiety. The patient's mental health appears to be unstable, with recent suicide attempts and hospitalizations. The patient's medication regimen may need adjustment, as they report that their body often stops responding to medication. 1. Continue current medication. Will cross titrate Risperdal and Invega discontinuing the bedtime dose of Risperdal and starting Invega 3 mg p.o. at bedtime. Will discontinue morning dose of Geodon. Will discontinue Risperdal altogether on Sunday and increase Invega to 6 mg p.o. nightly then. Get collateral information on the possibility he had the first Invega injection but not the second for loading possibly prior to discharge from his last hospitalization a week or so ago. Given Invega 156 mg IM to deltoid loading dose. Will determine when next loading dose due. 2. Encourage individual, group and milieu therapies. 3. Encourage sober living treatment after discharge at the highest level care to which he is willing to commit. 4. Obtain collateral information. 5. Continue every 15 minute checks for safety. Involuntary Hold Information 2 96 Hour Hold: 96 Hour Involuntary Admission: Yes 96 Hour Hold Ending Date: 06/06/24 96 Hour Hold Ending Time: 03:35 Attestations NPU 2 Medical Necessity Statement*: Inpatient hospitalization is medically necessary and?the clinically appropriate intervention at this time.? We will monitor/initiate medications and make changes as indicated.? Likely length of stay 3-5 days. Coding Level of Care Code Acute Code for Chg Fwd Diagnoses Intentional overdose T50.902A Encounter type: initial encounter Anxiety F41.9 Hallucinations R44.3 Tobacco use disorder F17.200 Cannabis use disorder F12.90 Cluster B personality disorder in adult F60.9 Major depressive disorder, recurrent F33.9 PTSD (post-traumatic stress disorder) F43.10
[2024-06-07 14:00] VITALS: BP 118/74; PULSE 93; RESP 16; TEMP 37.2; O2SAT 98
[2024-06-07] MEDS: paliperidone ER 6 mg Tablet PO (20:27)
[2024-06-07] MEDS: quetiapine 25 mg Tablet 50 MG PO (20:27)
[2024-06-07] MEDS: doxepin 50 mg Capsule PO (20:28)
[2024-06-07 21:01] VITALS: BP 116/70; PULSE 120; RESP 18; TEMP 36.6; O2SAT 98
[2024-06-07] MEDS: OLANZapine 5 mg ODT PO (21:16)
--- NOTE | 2024-06-07 21:45 | PC.NURSE ---
patient c/o chest pressure and pain, 5/10. was unsure of how long he had been experiencing symptoms, around an hour per pt. hr was tachy at 120, bp was wnl at 116/70. order for ekg was obtained. while waiting for RT to come do the ekg pt stated that symptoms were gone and that he didn't want the ekg. designer writer confirmed a second time with pt that he didn't want it, to which the patient verbalized that he did not want the ekg done.
[2024-06-08 06:00] VITALS: BP 111/73; PULSE 102; RESP 18; TEMP 36.7; O2SAT 97
--- NOTE | 2024-06-08 09:49 | PC.NURSE ---
Patient was told multiple times that he needed to come to the nurses' desk to take his pantoprazole. Patient acknowledged this every time, but refused to come to the counter.
[2024-06-08] MEDS: nicotine 4 mg lozenge MUCOUS MEM ×5 (12:13→20:09)
[2024-06-08] MEDS: paliperidone palmitate 156 mg Syringe IM (12:16)
--- NOTE | 2024-06-08 12:21 | PC.NURSE ---
Administered Invega 156mg IM into right deltoid. Patient tolerated well and is now talking with other patients in the dayroom.
[2024-06-08 13:53] VITALS: BP 124/78; PULSE 123; RESP 16; TEMP 37.3; O2SAT 95
[2024-06-08] MEDS: ziprasidone hcl 60 mg Capsule PO (16:04)
--- NOTE | 2024-06-08 18:18 | P.NPUPN_ITS ---
Subjective NPU 2 Subjective: Patient is a 18-year-old male admitted with overdose on Paxil and suicidal ideation. He had reported that the voices had been better. He continued to report feeling depressed. He had been less isolative on the milieu. He had endorsed a significant history of depression and difficulties with managing his own care since his adolescence. He had reported having been in multiple group homes throughout his life. He had acknowledged a history of self injury. He had acknowledged a history of depression throughout his life. He had endorsed some feelings of abandonment that remained. He had reported having been given IM Invega 234mg less than a week ago at previous inpatient stay at another facility. Mental Status Exam 2 MSE Comments: This is an obese white male in hospital scrubs with poor grooming and fair eye contact with hair notably dyed green. No abnormal movements except for mild psychomotor agitation. He mostly cooperative with exam in mild to moderate distress. Speech was slightly decreased rate and normal in volume. Mood described as okay. His affect was odd and subdued. Thought process was mostly organized. Thought content: Patient denied suicidal or homicidal ideation. There were no delusions reported but odd thinking and minimizing any clean delusional thoughts. He endorsed auditory but denied visual hallucinations. The patient reports hearing voices, sometimes from a distance and sometimes close by. The patient also reports symptoms of depression, anxiety, and paranoia. The patient has a history of self-harm and suicide attempts. The patient also reports intrusive thoughts and attachment issues. Attention and concentration were poor and his recent and remote memory was limited versus impaired, but none were formally tested. He is alert and oriented x 3, Insight and judgment are limited. Impulse control is impaired. Vitals/I&O/Wt Last Vital Signs Temp 99.1 F 06/08/24 13:53 Pulse 123 H 06/08/24 13:53 Resp 16 06/08/24 13:53 BP 124/78 06/08/24 13:53 Pulse Ox 95 06/08/24 13:53 O2 Del Method Room Air 06/08/24 13:53 Weight last 48 hrs Weight 99.79 kg Weight 104.326 kg Data NPU 06/03/24 04:10 06/03/24 04:10 A&P Assessment and plan (1) Intentional overdose: Qualifiers: Encounter type: initial encounter Qualified Code(s): T50.902A - Poisoning by unspecified drugs, medicaments and biological substances, intentional self-harm, initial encounter (2) Anxiety: (3) Hallucinations: (4) Tobacco use disorder: (5) Cannabis use disorder: (6) Cluster B personality disorder in adult: (7) Major depressive disorder, recurrent: (8) PTSD (post-traumatic stress disorder): Plan This is a 18-year-old white male with a long history of mental health issues, trauma and psychiatric care who presents after being discharged from another psychiatric facility and taken an overdose essentially returning almost immediately to the hospital now being transferred to the neuropsychiatric unit from the ICU. The patient has a complex mental health history with symptoms of psychosis, depression, and anxiety. The patient's mental health appears to be unstable, with recent suicide attempts and hospitalizations. The patient's medication regimen may need adjustment, as they report that their body often stops responding to medication. 1. Continue current medication. Will cross titrate Risperdal and Invega discontinuing the bedtime dose of Risperdal and starting Invega 3 mg p.o. at bedtime. Will discontinue morning dose of Geodon. Will discontinue Risperdal altogether on Sunday and increase Invega to 6 mg p.o. nightly then. Get collateral information on the possibility he had the first Invega injection but not the second for loading possibly prior to discharge from his last hospitalization a week or so ago. Given Invega 156 mg IM to deltoid loading dose. Will determine when next loading dose due. Discontinue Geodon (concern of polypharmacy). continue seroquel 50mg at night for now. 2. Encourage individual, group and milieu therapies. 3. Encourage sober living treatment after discharge at the highest level care to which he is willing to commit. 4. Obtain collateral information. 5. Continue every 15 minute checks for safety. Involuntary Hold Information 2 96 Hour Hold: 96 Hour Involuntary Admission: Yes 96 Hour Hold Ending Date: 06/06/24 96 Hour Hold Ending Time: 03:35 Attestations NPU 2 Medical Necessity Statement*: Inpatient hospitalization is medically necessary and?the clinically appropriate intervention at this time.? We will monitor/initiate medications and make changes as indicated.? Likely length of stay 3-5 days. Coding Level of Care Code Acute Code for [facility] Diagnoses Intentional overdose T50.902A Encounter type: initial encounter Anxiety F41.9 Hallucinations R44.3 Tobacco use disorder F17.200 Cannabis use disorder F12.90 Cluster B personality disorder in adult F60.9 Major depressive disorder, recurrent F33.9 PTSD (post-traumatic stress disorder) F43.10
--- NOTE | 2024-06-08 18:19 | PC.NURSE ---
CEMENT CRUSHER OPERATOR politely requested the patient step back from the door so she could push the dinner cart through. For some unknown reason this irritated the patient and he hit his head on the wall. When asked what was wrong he replied, none of your [place] business. Patient was redirectable and is now in the dayroom talking with other patients.
[2024-06-08] MEDS: quetiapine 25 mg Tablet 50 MG PO (20:09)
[2024-06-08] MEDS: doxepin 50 mg Capsule PO (20:09)
[2024-06-08] MEDS: paliperidone ER 6 mg Tablet PO (20:09)
[2024-06-08] MEDS: bisacodyl 5 mg Tablet PO (20:23)
[2024-06-08 20:28] VITALS: BP 128/77; PULSE 127; RESP 18; TEMP 36.6; O2SAT 97
[2024-06-09 06:00] VITALS: BP 133/84; PULSE 75; RESP 17; O2SAT 95
[2024-06-09] MEDS: nicotine 4 mg lozenge MUCOUS MEM ×5 (09:15→21:10)
[2024-06-09] MEDS: pantoprazole DR 40 mg Tablet PO (09:15)
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
[2024-06-09 14:00] VITALS: BP 135/85; PULSE 127; RESP 16; TEMP 37.2; O2SAT 95
[2024-06-09] MEDS: hyDROXYzine 25 mg Capsule 50 MG PO (15:13)
--- NOTE | 2024-06-09 16:09 | PC.NURSE ---
Patient's father's phone number is [phone] Venkat Edmonds
--- NOTE | 2024-06-09 17:34 | P.NPUPN_ITS ---
Subjective NPU 2 Subjective: Patient is a 18-year-old male admitted with overdose on Paxil and suicidal ideation. Patient had endorsed having auditory hallucinations since adolescence. He reports that the voices are intermittent and have been present for several years with no previous medication trials having been successful at reducing the intensity or frequency of these voices. He reported that he remains overwhelmed and states that he feels unsafe about going to a care home and stated that he had not receive the necessary training during his adolescence to prepared to be independent as an adult. The patient had been more social on the unit. He had continued to endorse depressed mood. He had continued to report being distracted by hallucinations. Mental Status Exam 2 MSE Comments: This is an obese white male in hospital scrubs with poor grooming and fair eye contact with hair notably dyed blue and green. No abnormal movements except for mild psychomotor agitation. He mostly cooperative with exam in mild to moderate distress. Speech was slightly decreased rate and normal in volume. Mood described as terrible. His affect was odd and subdued. Thought process was mostly organized. Thought content: Patient denied suicidal or homicidal ideation. There were no delusions reported but odd thinking and minimizing any clear delusional thoughts. He endorsed auditory but denied visual hallucinations. The patient reports hearing voices and did appear to be responding to internal stimuli. The patient also reports symptoms of depression, anxiety, and paranoia. The patient has a history of self-harm and suicide attempts. The patient also reports intrusive thoughts and attachment issues. Attention and concentration were poor and his recent and remote memory was limited versus impaired, but none were formally tested. He is alert and oriented x 3, Insight and judgment are limited. Impulse control is impaired. Vitals/I&O/Wt Last Vital Signs Temp 98.9 F 06/09/24 14:00 Pulse 127 H 06/09/24 14:00 Resp 16 06/09/24 14:00 BP 135/85 06/09/24 14:00 Pulse Ox 95 06/09/24 14:00 O2 Del Method Room Air 06/09/24 14:00 Weight last 48 hrs Weight 99.79 kg Weight 104.326 kg Data NPU 06/03/24 04:10 06/03/24 04:10 A&P Assessment and plan (1) Intentional overdose: Qualifiers: Encounter type: initial encounter Qualified Code(s): T50.902A - Poisoning by unspecified drugs, medicaments and biological substances, intentional self-harm, initial encounter (2) Anxiety: (3) Hallucinations: (4) Tobacco use disorder: (5) Cannabis use disorder: (6) Cluster B personality disorder in adult: (7) Major depressive disorder, recurrent: (8) PTSD (post-traumatic stress disorder): (9) Unspecified psychosis: Plan This is a 18-year-old white male with a long history of mental health issues, trauma and psychiatric care who presents after being discharged from another psychiatric facility and taken an overdose essentially returning almost immediately to the hospital now being transferred to the neuropsychiatric unit from the ICU. The patient has a complex mental health history with symptoms of psychosis, depression, and anxiety. The patient's mental health appears to be unstable, with recent suicide attempts and hospitalizations. The patient's medication regimen may need adjustment, as they report that their body often stops responding to medication. 1. Decrease Seroquel 25mg at night, decrease Invega 3mg at night (patient has both injections 234mg and 156mg in the last week) 2. Encourage individual, group and milieu therapies. 3. Encourage sober living treatment after discharge at the highest level care to which he is willing to commit. 4. Obtain collateral information. Patient appears to require advocacy, appears significantly disabled from significant mental illness since adolescence. 5. Continue every 15 minute checks for safety. Involuntary Hold Information 2 96 Hour Hold: 96 Hour Involuntary Admission: Yes 96 Hour Hold Ending Date: 06/06/24 96 Hour Hold Ending Time: 03:35 Attestations NPU 2 Medical Necessity Statement*: Inpatient hospitalization is medically necessary and?the clinically appropriate intervention at this time.? We will monitor/initiate medications and make changes as indicated.? Likely length of stay 3-5 days. Coding Level of Care Code Acute Code for [facility] Diagnoses Intentional overdose T50.902A Encounter type: initial encounter Anxiety F41.9 Hallucinations R44.3 Tobacco use disorder F17.200 Cannabis use disorder F12.90 Cluster B personality disorder in adult F60.9 Major depressive disorder, recurrent F33.9 PTSD (post-traumatic stress disorder) F43.10 Unspecified psychosis F29
[2024-06-09] MEDS: quetiapine 25 mg Tablet PO (20:41)
[2024-06-09] MEDS: doxepin 50 mg Capsule PO (20:41)
[2024-06-09] MEDS: paliperidone ER 3 mg Tablet PO (20:42)
[2024-06-09 22:00] VITALS: BP 125/80; PULSE 133; RESP 20; TEMP 37.1; O2SAT 97
[2024-06-09] MEDS: OLANZapine 5 mg ODT PO (22:29)
[2024-06-10 06:00] VITALS: BP 106/60; PULSE 86; RESP 16; TEMP 36.8; O2SAT 95
[2024-06-10] MEDS: nicotine 4 mg lozenge MUCOUS MEM ×2 (11:42→15:13)
[2024-06-10] MEDS: pantoprazole DR 40 mg Tablet PO (11:42)
[2024-06-10 14:00] VITALS: BP 120/72; PULSE 112; RESP 17; TEMP 36.8; O2SAT 96
[2024-06-10] MEDS: acetaminophen 500 mg Tablet PO (16:06)
--- NOTE | 2024-06-10 16:53 | W.PM.NPUPNS ---
Subjective NPU Subjective: Patient is a 18-year-old male admitted with overdose on Paxil and suicidal ideation with hx of multiple inpatient hospitalizations and hx of [place] [facility] placement. Patient had reported continued presence of hallucinations intermittently throughout the day. He reported no worsening of symptoms. He had expressed continued stress and helplessness regarding how to live independently with continued anxiety regarding his ability to maintain safety at home. He had expressed agreement with needing case management services. He reported adequate sleep. He continued to endorse depressed mood and reported infrequent suicidal thoughts. He had described having visual hallucinations often seeing a monster that he elpidio for the commercial loan underwriter of this note. Mental Status Exam MSE Comments: This is an obese white male in hospital scrubs with poor grooming and fair eye contact with hair notably dyed blue and green. No abnormal movements except for mild psychomotor retardation . He mostly cooperative with exam in mild to moderate distress. Speech was slightly decreased rate and normal in volume. Mood described as okay. His affect was flat. His thought process was linear and organized. Thought content: Patient denied suicidal or homicidal ideation. There were no delusions reported but odd thinking and minimizing any clear delusional thoughts. He endorsed auditory and visual hallucinations. The patient reports hearing voices and did appear to be responding to internal stimuli. The patient also reports symptoms of depression, anxiety, and paranoia. The patient has a history of self-harm and suicide attempts. The patient also reports intrusive thoughts and attachment issues. Attention and concentration were poor and his recent and remote memory was limited versus impaired, but none were formally tested. He is alert and oriented x 3, Insight and judgment are limited. Impulse control is impaired. Vitals/I&O/Wt Last Vital Signs Temp 98.3 F 06/10/24 14:00 Pulse 112 H 06/10/24 14:00 Resp 17 06/10/24 14:00 BP 120/72 06/10/24 14:00 Pulse Ox 96 06/10/24 14:00 O2 Del Method Room Air 06/10/24 06:00 Data NPU 06/03/24 04:10 06/03/24 04:10 A&P Assessment and plan (1) Intentional overdose: Qualifiers: Encounter type: initial encounter Qualified Code(s): T50.902A - Poisoning by unspecified drugs, medicaments and biological substances, intentional self-harm, initial encounter (2) Anxiety: (3) Hallucinations: (4) Tobacco use disorder: (5) Cannabis use disorder: (6) Cluster B personality disorder in adult: (7) Major depressive disorder, recurrent: (8) PTSD (post-traumatic stress disorder): (9) Unspecified psychosis: Plan This is a 18-year-old white male with a long history of mental health issues, trauma and psychiatric care who presents after being discharged from another psychiatric facility and taken an overdose essentially returning almost immediately to the hospital now being transferred to the neuropsychiatric unit from the ICU. The patient has a complex mental health history with symptoms of psychosis, depression, and anxiety. The patient's mental health appears to be unstable, with recent suicide attempts and hospitalizations. The patient's medication regimen may need adjustment, as they report that their body often stops responding to medication. 1. D/C Seroquel, continue Invega 3mg at night (patient has both injections 234mg and 156mg in the last week) Continue doxepin 50mg at night. 2. Encourage individual, group and milieu therapies. 3. Encourage sober living treatment after discharge at the highest level care to which he is willing to commit. 4. Obtain collateral information. Patient appears to require advocacy, appears significantly disabled from significant mental illness since adolescence. Case management services necessary, patient had been under adult guardianship in [place] that was rescinded prior to moving from [place]. 5. Continue every 15 minute checks for safety. Involuntary Hold Information 96 Hour Hold: 96 Hour Involuntary Admission: Yes 96 Hour Hold Ending Date: 06/06/24 96 Hour Hold Ending Time: 03:35 Attestations NPU Medical Necessity Statement*: Inpatient hospitalization is medically necessary and?the clinically appropriate intervention at this time.? We will monitor/initiate medications and make changes as indicated.? Likely length of stay 3-5 days. Coding Level of Care Code Acute Code for [facility] Diagnoses Intentional overdose T50.902A Encounter type: initial encounter Anxiety F41.9 Hallucinations R44.3 Tobacco use disorder F17.200 Cannabis use disorder F12.90 Cluster B personality disorder in adult F60.9 Major depressive disorder, recurrent F33.9 PTSD (post-traumatic stress disorder) F43.10 Unspecified psychosis F29
[2024-06-10] MEDS: nicotine 4 mg lozenge 8 MG MUCOUS MEM ×2 (17:27→19:33)
--- NOTE | 2024-06-10 17:43 | PC.NURSE ---
pt continues to eat 100% of his tray plus drinking 3 chocolate milks and requesting other food from other patient trays. pt eats snacks regularly and drinks% chocolate milk and juice throughout the day.
[2024-06-10 19:23] VITALS: BP 148/82; PULSE 114; RESP 16; TEMP 37.1; O2SAT 95
[2024-06-10] MEDS: paliperidone ER 3 mg Tablet PO (19:31)
[2024-06-10] MEDS: doxepin 50 mg Capsule PO (19:31)
[2024-06-11 06:00] VITALS: BP 105/61; PULSE 74; RESP 18; TEMP 36.6; O2SAT 96
[2024-06-11] MEDS: pantoprazole DR 40 mg Tablet PO (08:18)
[2024-06-11] MEDS: nicotine 4 mg lozenge 8 MG MUCOUS MEM ×6 (08:21→20:55)
[2024-06-11] MEDS: acetaminophen 500 mg Tablet PO (09:29)
[2024-06-11 14:00] VITALS: BP 119/73; PULSE 136; RESP 17; TEMP 36.6; O2SAT 96
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
[2024-06-11] MEDS: hyDROXYzine 25 mg Capsule 50 MG PO (18:40)
[2024-06-11] MEDS: haloperidol inj 5 mg/mL INJ 1 mL IM (19:00)
[2024-06-11] MEDS: diphenhydrAMINE 50 mg/mL SDV 1mL IM (19:00)
[2024-06-11] MEDS: LORazepam 2 mg/mL INJ 1 mL IM (19:00)
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
[2024-06-11 20:42] VITALS: BP 103/68; PULSE 120; RESP 20; TEMP 37.1; O2SAT 95
[2024-06-11] MEDS: paliperidone ER 3 mg Tablet PO (20:54)
[2024-06-11] MEDS: doxepin 50 mg Capsule PO (20:54)
[2024-06-12 06:00] VITALS: BP 121/76; PULSE 81; RESP 18; O2SAT 97
[2024-06-12] MEDS: pantoprazole DR 40 mg Tablet PO (11:44)
[2024-06-12] MEDS: nicotine 4 mg lozenge 8 MG MUCOUS MEM ×4 (12:14→20:54)
[2024-06-12 14:00] VITALS: BP 103/66; PULSE 127; RESP 18; TEMP 36.4; O2SAT 96
--- NOTE | 2024-06-12 17:02 | P.NPUPN_ITS ---
Subjective NPU 2 Subjective: Patient is a 18-year-old male admitted with overdose on Paxil and suicidal ideation with hx of multiple inpatient hospitalizations and hx of [facility] placement during childhood. Patient did not endorse as intense hallucinations today. He had expressed concern about leaving the hospital and continue to report that he had thoughts of slitting his throat. He stated he was interested in job [employer] and continue to support the idea that he needed additional help with case management. He had reported interest in starting an antidepressant at this time. He had not reported any sleep disturbance currently. Mental Status Exam 2 MSE Comments: This is an obese white male in hospital scrubs with poor grooming and fair eye contact with hair notably dyed blue and green. No abnormal movements except for mild psychomotor retardation . He was cooperative with exam in mild to moderate distress. Speech was slightly decreased in rate and normal in volume. Mood described as down. His affect was flat. His thought process was linear and organized. Thought content: Patient denied suicidal or homicidal ideation. There were no delusions reported but odd thinking and minimizing any clear delusional thoughts. He denied any auditory and visual hallucinations. The patient reports intermittent auditory hallucinations and visual hallucinations but did not appear to be responding to internal stimuli. The patient also reports symptoms of depression, anxiety, and paranoia. The patient has a history of self-harm and suicide attempts. The patient also reports intrusive thoughts and attachment issues. Attention and concentration were poor and his recent and remote memory was limited versus impaired, but none were formally tested. He is alert and oriented x 3, Insight and judgment are limited. Impulse control is impaired. Vitals/I&O/Wt Last Vital Signs Temp 98.7 F 06/11/24 20:42 Pulse 81 06/12/24 06:00 Resp 18 06/12/24 06:00 BP 121/76 06/12/24 06:00 Pulse Ox 97 06/12/24 06:00 O2 Del Method Room Air 06/12/24 06:00 Data NPU 06/03/24 04:10 06/03/24 04:10 A&P Assessment and plan (1) Intentional overdose: Qualifiers: Encounter type: initial encounter Qualified Code(s): T50.902A - Poisoning by unspecified drugs, medicaments and biological substances, intentional self-harm, initial encounter (2) Anxiety: (3) Hallucinations: (4) Tobacco use disorder: (5) Cannabis use disorder: (6) Cluster B personality disorder in adult: (7) Major depressive disorder, recurrent: (8) PTSD (post-traumatic stress disorder): (9) Unspecified psychosis: Plan This is a 18-year-old white male with a long history of mental health issues, trauma and psychiatric care who presents after being discharged from another psychiatric facility and taken an overdose essentially returning almost immediately to the hospital now being transferred to the neuropsychiatric unit from the ICU. The patient has a complex mental health history with symptoms of psychosis, depression, and anxiety. The patient's mental health appears to be unstable, with recent suicide attempts and hospitalizations. The patient's medication regimen may need adjustment, as they report that their body often stops responding to medication. 1. D/C invega. (patient has both injections 234mg and 156mg in the last week) Continue doxepin 50mg at night. Add low dose of cymbalta 30mg daily. 2. Encourage individual, group and milieu therapies. 3. Encourage sober living treatment after discharge at the highest level care to which he is willing to commit. 4. Obtain collateral information. Patient appears to require advocacy, appears significantly disabled from significant mental illness since adolescence. Case management services necessary, patient had been under adult guardianship in [place] that was rescinded prior to moving from [place]. 5. Continue every 15 minute checks for safety. Involuntary Hold Information 2 96 Hour Hold: 96 Hour Involuntary Admission: Yes 96 Hour Hold Ending Date: 06/06/24 96 Hour Hold Ending Time: 03:35 Attestations NPU 2 Medical Necessity Statement*: Inpatient hospitalization is medically necessary and?the clinically appropriate intervention at this time.? We will monitor/initiate medications and make changes as indicated.? Likely length of stay 3-5 days. Coding Level of Care Code Acute Code for Chg Fwd Diagnoses Intentional overdose T50.902A Encounter type: initial encounter Anxiety F41.9 Hallucinations R44.3 Tobacco use disorder F17.200 Cannabis use disorder F12.90 Cluster B personality disorder in adult F60.9 Major depressive disorder, recurrent F33.9 PTSD (post-traumatic stress disorder) F43.10 Unspecified psychosis F29
[2024-06-12 20:29] VITALS: BP 103/72; PULSE 100; RESP 18; TEMP 37; O2SAT 98
[2024-06-12] MEDS: hyDROXYzine 25 mg Capsule 50 MG PO (20:54)
[2024-06-12] MEDS: doxepin 50 mg Capsule PO (20:54)
[2024-06-13 06:00] VITALS: BP 118/71; PULSE 76; RESP 16; O2SAT 98
--- NOTE | 2024-06-13 08:48 | PC.NURSE ---
PT IN ROOM MAKING INAPPROPRIATE STATEMENTS WITH FEMALE STAFF. PT STATES YEAH YOU'RE REALLY LOOKING GOOD. THEN PT STEPPED BACK STARRING AT THIS RN LAUGHING AND MUTTERING UNDER HIS BREATH. DENIES PAIN. DENIES SI/HI. WHEN ASKED IF HAVING AVH PT STATES NOT TO BAD. WHEN ASKED TO RATE DEPRESSION AND ANXIETY 0/10 PT STATES YEAH NOT TOO BAD. SHAKES HEAD YES TO SLEEPING GOOD LAST NIGHT. PT STATES GOAL FOR THE DAY IS TO KEEP FEELING THE CONCENTRATION I FELL, I CONCENTRATE GOOD. RN ASKED IF HE NEEDED ANYTHING ELSE PT STATED AGAIN NOT THAT BAD. THEN LAUGHS INAPPROPRIATELY AND MUTTERS UNDER BREATH. PT IS OBSERVED SPEAKING TO UNSEEN OTHERS AND ANSWERING HIMSELF, POINTING OUT THINGS IN THE ROOM. PT REPONDS TO BOTH INTERNAL AND EXTERNAL STIMULI. ALL QUESTIONS ANSWERED AND SUPPORT WAS VOICED.
--- NOTE | 2024-06-13 09:54 | PC.NURSE ---
refused scheduled Protonix
[2024-06-13] MEDS: nicotine 4 mg lozenge 8 MG MUCOUS MEM ×6 (10:52→21:33)
[2024-06-13 14:00] VITALS: BP 130/77; PULSE 98; RESP 17; TEMP 37.2; O2SAT 98
--- NOTE | 2024-06-13 14:00 | W.PM.NPUPNS ---
Subjective NPU Subjective: Patient is a 18-year-old male admitted with overdose on Paxil and suicidal ideation with hx of multiple inpatient hospitalizations and hx of long term placement during childhood. Patient had continued to endorse some feelings of abandonment. He had reported that he continued to report feeling bored. He had expressed motivation with wanting to attempt to attend job [employer] but at the same time elicited having problems with maintaining a job in the past. He had reported that he did feel that he needed to be on disability. He had been informed that case management services would be necessary here in [place]. He had continued to report having intense visions and auditory hallucinations when asked but did not appear preoccupied on the unit. He appeared at times social and redirectable. He had described having a previous relationship with a woman and stated having lost a child that was stillborn. Mental Status Exam MSE Comments: This is an obese white male in hospital scrubs with poor grooming and fair eye contact with hair notably dyed blue and green. No abnormal movements except for mild psychomotor retardation . He was cooperative with exam in mild to moderate distress. Speech was slightly decreased in rate and normal in volume. Mood described as allright. His affect was restricted in range and mood congruent. His thought process was linear and organized. Thought content: Patient denied suicidal or homicidal ideation. There were no delusions appreciated and minimizing any clear delusional thoughts. He denied any auditory and visual hallucinations. The patient reports intermittent auditory hallucinations and visual hallucinations but did not appear to be responding to internal stimuli. The patient also reports symptoms of depression, anxiety, and paranoia. The patient has a history of self-harm and suicide attempts. The patient also reports intrusive thoughts and attachment issues. Attention and concentration were poor and his recent and remote memory was limited versus impaired, but none were formally tested. He is alert and oriented x 3, Insight and judgment are limited. Impulse control is impaired. Vitals/I&O/Wt Last Vital Signs Temp 98.6 F 06/12/24 20:29 Pulse 76 06/13/24 06:00 Resp 16 06/13/24 06:00 BP 118/71 06/13/24 06:00 Pulse Ox 98 06/13/24 06:00 O2 Del Method Room Air 06/12/24 06:00 Data NPU 06/03/24 04:10 06/03/24 04:10 A&P Assessment and plan (1) Cluster B personality disorder in adult: (2) Major depressive disorder, recurrent: (3) PTSD (post-traumatic stress disorder): (4) Unspecified psychosis: (5) Intentional overdose: Qualifiers: Encounter type: initial encounter Qualified Code(s): T50.902A - Poisoning by unspecified drugs, medicaments and biological substances, intentional self-harm, initial encounter (6) Anxiety: (7) Hallucinations: (8) Tobacco use disorder: (9) Cannabis use disorder: Plan This is a 18-year-old white male with a long history of mental health issues, trauma and psychiatric care who presents after being discharged from another psychiatric facility and taken an overdose essentially returning almost immediately to the hospital now being transferred to the neuropsychiatric unit from the ICU. The patient has a complex mental health history with symptoms of psychosis, depression, and anxiety. The patient's mental health appears to be unstable, with recent suicide attempts and hospitalizations. The patient's medication regimen may need adjustment, as they report that their body often stops responding to medication. 1. (patient has both injections 234mg and 156mg in the last week) Continue doxepin 50mg at night. Continue cymbalta 30mg daily for depression and anxiety. 2. Encourage individual, group and milieu therapies. 3. Encourage sober living treatment after discharge at the highest level care to which he is willing to commit. 4. Obtain collateral information. Patient appears to require advocacy, appears significantly disabled from significant mental illness since adolescence. Case management services necessary, patient had been under adult guardianship in [place] that was rescinded prior to moving from [place]. 5. Continue every 15 minute checks for safety. Involuntary Hold Information 96 Hour Hold: 96 Hour Involuntary Admission: Yes 96 Hour Hold Ending Date: 06/06/24 96 Hour Hold Ending Time: 03:35 Attestations NPU Medical Necessity Statement*: Inpatient hospitalization is medically necessary and?the clinically appropriate intervention at this time.? We will monitor/initiate medications and make changes as indicated.? Likely length of stay 3-5 days. Coding Level of Care Code Acute Code for Chg Fwd Diagnoses Cluster B personality disorder in adult F60.9 Major depressive disorder, recurrent F33.9 PTSD (post-traumatic stress disorder) F43.10 Unspecified psychosis F29 Intentional overdose T50.902A Encounter type: initial encounter Anxiety F41.9 Hallucinations R44.3 Tobacco use disorder F17.200 Cannabis use disorder F12.90
[2024-06-13] MEDS: duloxetine 30 mg Capsule PO (14:52)
[2024-06-13] MEDS: doxepin 50 mg Capsule PO (19:59)
[2024-06-13 22:00] VITALS: BP 152/82; PULSE 119; RESP 18; TEMP 36.6; O2SAT 95
[2024-06-14] MEDS: trazodone 50 mg Tablet PO (00:11)
[2024-06-14] MEDS: hyDROXYzine 25 mg Capsule 50 MG PO ×2 (00:11→18:04)
[2024-06-14 06:00] VITALS: BP 109/72; PULSE 75; RESP 16; O2SAT 95
[2024-06-14 08:10] VITALS: PULSE 90; RESP 16; O2SAT 100
[2024-06-14] MEDS: pantoprazole DR 40 mg Tablet PO (08:34)
[2024-06-14] MEDS: duloxetine 30 mg Capsule PO (08:34)
[2024-06-14 14:00] VITALS: BP 107/69; PULSE 99; RESP 16; O2SAT 95
[2024-06-14] MEDS: nicotine 4 mg lozenge 8 MG MUCOUS MEM ×4 (14:15→21:37)
--- NOTE | 2024-06-14 14:42 | P.NPUPN_ITS ---
Subjective NPU 2 Subjective: Patient is a 18-year-old male admitted with overdose on Paxil and suicidal ideation with hx of multiple inpatient hospitalizations and hx of penitentiary placement during childhood. The patient had reported having difficulties falling asleep. He appeared somewhat tired and was resting this afternoon after reporting having difficulties with staying asleep last night. He had not endorsed hallucinations today. He had continued to report low motivation and severe depression with suicidal thoughts. There have been no episodes of aggression. He had continued to report issues with abandonment and continued to report having frequent mood swings. He had reported having spent significant amount of time in his life feeling depressed. He reported no side effects from the Cymbalta at this time. Mental Status Exam 2 MSE Comments: This is an obese white male in hospital scrubs with poor grooming and fair eye contact with hair notably dyed blue and green. No abnormal movements except for mild psychomotor retardation as he was lying in bed. He was less cooperative with exam in mild to moderate distress. Speech was decreased in rate and diminished in volume. Mood described as not good. His affect was restricted in range and mood congruent. His thought process was linear and organized. Thought content: Patient endorsed suicidal ideation without plan and denied homicidal ideation. There were no delusions appreciated and minimizing any clear delusional thoughts. He denied any auditory and visual hallucinations. The patient reports intermittent auditory hallucinations and visual hallucinations but did not appear to be responding to internal stimuli. The patient also reports symptoms of depression, anxiety, and paranoia. The patient has a history of self-harm and suicide attempts. The patient also reports intrusive thoughts and attachment issues. Attention and concentration were poor and his recent and remote memory was limited versus impaired, but none were formally tested. He is alert and oriented x 3, Insight and judgment are limited. Impulse control is impaired. Vitals/I&O/Wt Last Vital Signs Temp 98 F 06/13/24 22:00 Pulse 99 06/14/24 14:00 Resp 16 06/14/24 14:00 BP 107/69 06/14/24 14:00 Pulse Ox 95 06/14/24 14:00 O2 Del Method Room Air 06/14/24 06:00 Data NPU 06/03/24 04:10 06/03/24 04:10 A&P Assessment and plan (1) Major depressive disorder, recurrent: (2) PTSD (post-traumatic stress disorder): (3) Cluster B personality disorder in adult: (4) Unspecified psychosis: (5) Intentional overdose: Qualifiers: Encounter type: initial encounter Qualified Code(s): T50.902A - Poisoning by unspecified drugs, medicaments and biological substances, intentional self-harm, initial encounter (6) Anxiety: (7) Hallucinations: (8) Tobacco use disorder: (9) Cannabis use disorder: Plan This is a 18-year-old white male with a long history of mental health issues, trauma and psychiatric care who presents after being discharged from another psychiatric facility and taken an overdose essentially returning almost immediately to the hospital now being transferred to the neuropsychiatric unit from the ICU. The patient has a complex mental health history with symptoms of psychosis, depression, and anxiety. The patient's mental health appears to be unstable, with recent suicide attempts and hospitalizations. The patient's medication regimen may need adjustment, as they report that their body often stops responding to medication. 1. (patient has both injections 234mg and 156mg in the last week) Continue doxepin 50mg at night. Continue cymbalta 30mg daily for depression and anxiety. 2. Encourage individual, group and milieu therapies. 3. Encourage sober living treatment after discharge at the highest level care to which he is willing to commit. 4. Obtain collateral information. Patient appears to require advocacy, appears significantly disabled from significant mental illness since adolescence. Case management services necessary, patient had been under adult guardianship in [place] that was rescinded prior to moving from [place]. 5. Continue every 15 minute checks for safety. Involuntary Hold Information 2 96 Hour Hold: 96 Hour Involuntary Admission: Yes 96 Hour Hold Ending Date: 06/06/24 96 Hour Hold Ending Time: 03:35 Attestations NPU 2 Medical Necessity Statement*: Inpatient hospitalization is medically necessary and?the clinically appropriate intervention at this time.? We will monitor/initiate medications and make changes as indicated.? Likely length of stay 3-5 days. Coding Level of Care Code Acute Code for g Fwd Diagnoses Major depressive disorder, recurrent F33.9 PTSD (post-traumatic stress disorder) F43.10 Cluster B personality disorder in adult F60.9 Unspecified psychosis F29 Intentional overdose T50.902A Encounter type: initial encounter Anxiety F41.9 Hallucinations R44.3 Tobacco use disorder F17.200 Cannabis use disorder F12.90
[2024-06-14] MEDS: OLANZapine 5 mg ODT PO (18:04)
[2024-06-14] MEDS: doxepin 50 mg Capsule PO (20:20)
[2024-06-14 22:00] VITALS: BP 116/82; PULSE 115; RESP 18; TEMP 36.6; O2SAT 98
[2024-06-15 06:00] VITALS: BP 104/70; PULSE 77; RESP 16; O2SAT 95
[2024-06-15] MEDS: pantoprazole DR 40 mg Tablet PO (10:57)
[2024-06-15] MEDS: duloxetine 30 mg Capsule PO (10:57)
[2024-06-15] MEDS: nicotine 4 mg lozenge 8 MG MUCOUS MEM ×4 (11:57→21:27)
[2024-06-15 14:00] VITALS: BP 109/78; PULSE 123; RESP 18; TEMP 36.5; O2SAT 95
--- NOTE | 2024-06-15 15:14 | P.NPUPN_ITS ---
Subjective NPU 2 Subjective: Patient is a 18-year-old male admitted with overdose on Paxil and suicidal ideation with hx of multiple inpatient hospitalizations and hx of jail placement during childhood. Patient was lethargic and lying in his bed somewhat disinterested today. He had continued to report depressed mood and reported occasional hallucinations. He reported no side effects from his medication. Patient was redirectable. He had not required prompting for completion of activities of daily living. He continues to endorse periods of abandonment and reported loneliness and lack of support from his father. Patient reported no change in overall anxiety. He had reported having history of difficulties with managing his emotions. He reported having frequent shifts in mood. Mental Status Exam 2 MSE Comments: This is an obese white male in hospital scrubs with poor grooming and fair eye contact with hair notably dyed blue and green. No abnormal movements except for mild psychomotor retardation as he was lying in bed. He was less cooperative with exam in mild distress. Speech was decreased in rate and diminished in volume. Mood described as the same His affect was restricted in range. His thought process was linear and organized. Thought content: Patient endorsed suicidal ideation without plan and denied homicidal ideation. There were no delusions appreciated and minimizing any clear delusional thoughts. He denied any auditory and visual hallucinations. The patient reports fleeting auditory hallucinations and visual hallucinations but did not appear to be responding to internal stimuli. The patient also reports symptoms of depression, anxiety, and paranoia. The patient has a history of self-harm and suicide attempts. The patient also reports intrusive thoughts and attachment issues. Attention and concentration were poor and his recent and remote memory was limited versus impaired, but none were formally tested. He is alert and oriented x 3, Insight and judgment are limited. Impulse control is impaired. Vitals/I&O/Wt Last Vital Signs Temp 97.7 F 06/15/24 14:00 Pulse 123 H 06/15/24 14:00 Resp 18 06/15/24 14:00 BP 109/78 06/15/24 14:00 Pulse Ox 95 06/15/24 14:00 O2 Del Method Room Air 06/15/24 14:00 Weight last 48 hrs Weight 99.053 kg Data NPU 06/03/24 04:10 06/03/24 04:10 A&P Assessment and plan (1) Major depressive disorder, recurrent: (2) PTSD (post-traumatic stress disorder): (3) Cluster B personality disorder in adult: (4) Unspecified psychosis: (5) Intentional overdose: Qualifiers: Encounter type: initial encounter Qualified Code(s): T50.902A - Poisoning by unspecified drugs, medicaments and biological substances, intentional self-harm, initial encounter (6) Anxiety: (7) Hallucinations: (8) Tobacco use disorder: (9) Cannabis use disorder: Plan This is a 18-year-old white male with a long history of mental health issues, trauma and psychiatric care who presents after being discharged from another psychiatric facility and taken an overdose essentially returning almost immediately to the hospital now being transferred to the neuropsychiatric unit from the ICU. The patient has a complex mental health history with symptoms of psychosis, depression, and anxiety. The patient's mental health appears to be unstable, with recent suicide attempts and hospitalizations. The patient's medication regimen may need adjustment, as they report that their body often stops responding to medication. 1. (patient has both injections 234mg and 156mg in the last week) Continue doxepin 50mg at night. Continue cymbalta 30mg daily for depression and anxiety. 2. Encourage individual, group and milieu therapies. 3. Encourage sober living treatment after discharge at the highest level care to which he is willing to commit. 4. Obtain collateral information. Patient appears to require advocacy, appears significantly disabled from significant mental illness since adolescence. Case management services necessary, patient had been under adult guardianship in [place] that was rescinded prior to moving from [place]. 5. Continue every 15 minute checks for safety. Involuntary Hold Information 2 96 Hour Hold: 96 Hour Involuntary Admission: Yes 96 Hour Hold Ending Date: 06/06/24 96 Hour Hold Ending Time: 03:35 Attestations NPU 2 Medical Necessity Statement*: Inpatient hospitalization is medically necessary and?the clinically appropriate intervention at this time.? We will monitor/initiate medications and make changes as indicated.? Likely length of stay 3-5 days. Coding Level of Care Code Acute Code for g Fwd Diagnoses Major depressive disorder, recurrent F33.9 PTSD (post-traumatic stress disorder) F43.10 Cluster B personality disorder in adult F60.9 Unspecified psychosis F29 Intentional overdose T50.902A Encounter type: initial encounter Anxiety F41.9 Hallucinations R44.3 Tobacco use disorder F17.200 Cannabis use disorder F12.90
[2024-06-15] MEDS: doxepin 50 mg Capsule PO (20:08)
[2024-06-15] MEDS: haloperidol 5 mg Tablet PO (20:08)
[2024-06-15 21:30] VITALS: BP 129/83; PULSE 122; RESP 20; TEMP 37; O2SAT 98
[2024-06-15] MEDS: OLANZapine 5 mg ODT PO (23:31)
[2024-06-16 06:00] VITALS: BP 106/67; PULSE 63; RESP 16; O2SAT 97
--- NOTE | 2024-06-16 08:40 | PC.NURSE ---
IN BED RESTING. EVASIVE WITH ASSESSMENT, STATES LET ME SLEEP. SHAKES HEAD YES TO SLEEPING WELL LAST NIGHT. DENIES SI/HI AND AVH AT THIS TIME. RATES ANXIETY AND DEPRESSION 0/10. STATES HE HAS NO GOAL FOR TODAY. DENIES PAIN. SUPPORT VOICED. AFFECT FLAT AND DISINTERESTED IN PARTICIPATING IN TREATMENT.
[2024-06-16] MEDS: duloxetine 30 mg Capsule PO (09:27)
[2024-06-16] MEDS: nicotine 4 mg lozenge 8 MG MUCOUS MEM ×3 (09:27→17:11)
[2024-06-16] MEDS: pantoprazole DR 40 mg Tablet PO (09:27)
[2024-06-16 14:00] VITALS: BP 115/67; PULSE 131; RESP 16; TEMP 36.8; O2SAT 95
--- NOTE | 2024-06-16 16:20 | P.NPUPN_ITS ---
Subjective NPU 2 Subjective: Patient is a 18-year-old male admitted with overdose on Paxil and suicidal ideation with hx of multiple inpatient hospitalizations and hx of [place] [facility] placement during childhood. Patient had continued to express desire to consider job corps. He had reported continued depression and reported voices were the same . He reported no side effects from his medication regimen. He had continued to report having frequent mood swings and reported having periods of intense feelings of abandonment. He did not appear to engage in any self- injurious behavior here. Patient reports no behavioral changes. He had reported frequent awakenings at night. Mental Status Exam 2 MSE Comments: This is an obese white male in hospital scrubs with poor grooming and fair eye contact with hair notably dyed blue and green. No abnormal movements except for mild psychomotor retardation as he was lying in bed. He was cooperative with exam in mild distress. Speech was decreased in rate and diminished in volume. Mood described as depressed His affect was restricted in range. His thought process was linear and organized. Thought content: Patient endorsed suicidal ideation without plan and denied homicidal ideation. There were no delusions appreciated and minimizing any clear delusional thoughts. He denied any auditory and visual hallucinations. The patient reports fleeting auditory hallucinations and visual hallucinations but did not appear to be responding to internal stimuli. The patient also reports symptoms of depression, anxiety, and paranoia. The patient has a history of self-harm and suicide attempts. The patient also reports intrusive thoughts and attachment issues. Attention and concentration were poor and his recent and remote memory was limited versus impaired, but none were formally tested. He is alert and oriented x 3, Insight and judgment are limited. Impulse control is impaired. Vitals/I&O/Wt Last Vital Signs Temp 98.3 F 06/16/24 14:00 Pulse 131 H 06/16/24 14:00 Resp 16 06/16/24 14:00 BP 115/67 06/16/24 14:00 Pulse Ox 95 06/16/24 14:00 O2 Del Method Room Air 06/16/24 14:00 Weight last 48 hrs Weight 99.053 kg Data NPU 06/03/24 04:10 06/03/24 04:10 A&P Assessment and plan (1) Major depressive disorder, recurrent: (2) PTSD (post-traumatic stress disorder): (3) Cluster B personality disorder in adult: (4) Unspecified psychosis: (5) Intentional overdose: Qualifiers: Encounter type: initial encounter Qualified Code(s): T50.902A - Poisoning by unspecified drugs, medicaments and biological substances, intentional self-harm, initial encounter (6) Anxiety: (7) Hallucinations: (8) Tobacco use disorder: (9) Cannabis use disorder: Plan This is a 18-year-old white male with a long history of mental health issues, trauma and psychiatric care who presents after being discharged from another psychiatric facility and taken an overdose essentially returning almost immediately to the hospital now being transferred to the neuropsychiatric unit from the ICU. The patient has a complex mental health history with symptoms of psychosis, depression, and anxiety. The patient's mental health appears to be unstable, with recent suicide attempts and hospitalizations. The patient's medication regimen may need adjustment, as they report that their body often stops responding to medication. 1. D/C Doxepin, trial of ambien 5mg at night for sleep. Increase cymbalta to 60mg daily for depression and anxiety. 2. Encourage individual, group and milieu therapies. 3. Encourage sober living treatment after discharge at the highest level care to which he is willing to commit. 4. Obtain collateral information. Patient appears to require advocacy, appears significantly disabled from significant mental illness since adolescence. Case management services necessary, patient had been under adult guardianship in [place] that was rescinded prior to moving from [place]. 5. Continue every 15 minute checks for safety. Involuntary Hold Information 2 96 Hour Hold: 96 Hour Involuntary Admission: Yes 96 Hour Hold Ending Date: 06/06/24 96 Hour Hold Ending Time: 03:35 Attestations NPU 2 Medical Necessity Statement*: Inpatient hospitalization is medically necessary and?the clinically appropriate intervention at this time.? We will monitor/initiate medications and make changes as indicated.? Likely length of stay 3-5 days. Coding Level of Care Code Acute Code for g Fwd Diagnoses Major depressive disorder, recurrent F33.9 PTSD (post-traumatic stress disorder) F43.10 Cluster B personality disorder in adult F60.9 Unspecified psychosis F29 Intentional overdose T50.902A Encounter type: initial encounter Anxiety F41.9 Hallucinations R44.3 Tobacco use disorder F17.200 Cannabis use disorder F12.90
[2024-06-16] MEDS: OLANZapine 5 mg ODT PO (21:08)
[2024-06-16] MEDS: zolpidem 5 mg Tablet PO (21:08)
[2024-06-16 22:00] VITALS: BP 125/84; PULSE 108; RESP 18; TEMP 36.7; O2SAT 99
[2024-06-17 06:00] VITALS: BP 109/62; PULSE 71; RESP 15; TEMP 36.9; O2SAT 96
[2024-06-17] MEDS: duloxetine 30 mg Capsule 60 MG PO (09:00)
[2024-06-17] MEDS: pantoprazole DR 40 mg Tablet PO (09:00)
[2024-06-17] MEDS: nicotine 4 mg lozenge 8 MG MUCOUS MEM ×5 (09:00→21:29)
[2024-06-17 14:00] VITALS: BP 131/85; PULSE 122; RESP 17; O2SAT 97
--- NOTE | 2024-06-17 17:00 | P.NPUPN_ITS ---
Subjective NPU 2 Subjective: Patient is a 18-year-old male admitted with overdose on Paxil and suicidal ideation with hx of multiple inpatient hospitalizations and hx of long-term placement during childhood. The patient reported that he wished to consider job [employer] and stated that he would succeed. He had reported that the voices were calmer. He denied any suicidal thoughts today. He reports that he would live with his father when discharged unless he was going to [employer]. He had been less isolative on the milieu but continue to report feeling tired. He continue to report chronic feelings of abandonment. He had reported struggles with motivation and reported that he needed to get help and was agreeable to case management services. \ Mental Status Exam 2 MSE Comments: This is an obese white male in hospital scrubs with poor grooming and fair eye contact with hair notably dyed blue and green. No abnormal movements except for mild psychomotor retardation as he was lying in bed. He was cooperative with exam in mild distress. Speech was decreased in rate and normal in volume. Mood described as okay His affect was restricted in range. His thought process was linear and organized. Thought content: Patient endorsed suicidal ideation without plan and denied homicidal ideation. There were no delusions appreciated and minimizing any clear delusional thoughts. He denied any auditory and visual hallucinations and did not appear to be responding to internal stimuli. The patient also reports symptoms of depression, anxiety, and paranoia. The patient has a history of self-harm and suicide attempts. The patient also reports intrusive thoughts and attachment issues. Attention and concentration were poor and his recent and remote memory was limited versus impaired, but none were formally tested. He is alert and oriented x 3, Insight and judgment are limited. Impulse control is impaired. Vitals/I&O/Wt Last Vital Signs Temp 98.4 F 06/17/24 06:00 Pulse 122 H 06/17/24 14:00 Resp 17 06/17/24 14:00 BP 131/85 06/17/24 14:00 Pulse Ox 97 06/17/24 14:00 O2 Del Method Room Air 06/17/24 06:00 Data NPU 06/03/24 04:10 06/03/24 04:10 A&P Assessment and plan (1) Major depressive disorder, recurrent: (2) PTSD (post-traumatic stress disorder): (3) Cluster B personality disorder in adult: (4) Unspecified psychosis: (5) Intentional overdose: Qualifiers: Encounter type: initial encounter Qualified Code(s): T50.902A - Poisoning by unspecified drugs, medicaments and biological substances, intentional self-harm, initial encounter (6) Anxiety: (7) Hallucinations: (8) Tobacco use disorder: (9) Cannabis use disorder: Plan This is a 18-year-old white male with a long history of mental health issues, trauma and psychiatric care who presents after being discharged from another psychiatric facility and taken an overdose essentially returning almost immediately to the hospital now being transferred to the neuropsychiatric unit from the ICU. The patient has a complex mental health history with symptoms of psychosis, depression, and anxiety. The patient's mental health appears to be unstable, with recent suicide attempts and hospitalizations. The patient's medication regimen may need adjustment, as they report that their body often stops responding to medication. 1. Continue ambien 5mg at night for sleep. Continue cymbalta to 60mg daily for depression and anxiety. 2. Encourage individual, group and milieu therapies. 3. Encourage sober living treatment after discharge at the highest level care to which he is willing to commit. 4. 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 5. Continue every 15 minute checks for safety. Involuntary Hold Information 2 96 Hour Hold: 96 Hour Involuntary Admission: Yes 96 Hour Hold Ending Date: 06/06/24 96 Hour Hold Ending Time: 03:35 Attestations NPU 2 Medical Necessity Statement*: Inpatient hospitalization is medically necessary and?the clinically appropriate intervention at this time.? We will monitor/initiate medications and make changes as indicated.? Likely length of stay 3-5 days. Coding Level of Care Code Acute Code for [facility] Fwd Diagnoses Major depressive disorder, recurrent F33.9 PTSD (post-traumatic stress disorder) F43.10 Cluster B personality disorder in adult F60.9 Unspecified psychosis F29 Intentional overdose T50.902A Encounter type: initial encounter Anxiety F41.9 Hallucinations R44.3 Tobacco use disorder F17.200 Cannabis use disorder F12.90
[2024-06-17 20:20] VITALS: BP 136/82; PULSE 136; RESP 18; TEMP 36.6; O2SAT 99
[2024-06-17] MEDS: OLANZapine 5 mg ODT PO (20:35)
[2024-06-17] MEDS: zolpidem 5 mg Tablet PO (20:35)
[2024-06-17] MEDS: hyDROXYzine 25 mg Capsule 50 MG PO (22:29)
[2024-06-18 06:00] VITALS: BP 107/62; PULSE 64; RESP 16; TEMP 36.6; O2SAT 96
[2024-06-18] MEDS: duloxetine 30 mg Capsule 60 MG PO (08:45)
[2024-06-18] MEDS: pantoprazole DR 40 mg Tablet PO (08:45)
[2024-06-18] MEDS: nicotine 4 mg lozenge 8 MG MUCOUS MEM ×4 (11:19→20:56)
[2024-06-18 14:00] VITALS: BP 123/75; PULSE 113; RESP 17; TEMP 36.7; O2SAT 98
--- NOTE | 2024-06-18 18:53 | P.NPUPN_ITS ---
Subjective NPU 2 Subjective: Patient is a 18-year-old male admitted with overdose on Paxil and suicidal ideation with hx of multiple inpatient hospitalizations and hx of intermediate placement during childhood. The patient had expressed desire to return to [employer] [facility]. He was minimizing any thoughts of hurting himself or others. He had reported not hearing voices currently. He had continued to report having issues including falling asleep despite receiving multiple as needed medications and sleeping approximately 14 hours. He had been cooperative on the milieu and had engaged in appropriate self-care. He Continued to report desire to consider case management services. Mental Status Exam 2 MSE Comments: This is an obese white male in hospital scrubs with poor grooming and fair eye contact with hair notably dyed blue and green. No abnormal movements except for mild psychomotor retardation as he was lying in bed. He was cooperative with exam in mild distress. Speech was decreased in rate and normal in volume. Mood described as okay. His affect was less restricted in range. His thought process was linear and organized. Thought content: Patient endorsed no suicidal ideation without plan and denied homicidal ideation. There were no delusions appreciated and minimizing any clear delusional thoughts. He denied any auditory and visual hallucinations and did not appear to be responding to internal stimuli. The patient also reports symptoms of depression, anxiety, and paranoia. The patient has a history of self-harm and suicide attempts. The patient also reports intrusive thoughts and attachment issues. Attention and concentration were poor and his recent and remote memory was limited versus impaired, but none were formally tested. He is alert and oriented x 3, Insight and judgment are limited. Impulse control is impaired. Vitals/I&O/Wt Last Vital Signs Temp 98.0 F 06/18/24 14:00 Pulse 113 H 06/18/24 14:00 Resp 17 06/18/24 14:00 BP 123/75 06/18/24 14:00 Pulse Ox 98 06/18/24 14:00 O2 Del Method Room Air 06/18/24 14:00 Data NPU 06/03/24 04:10 06/03/24 04:10 A&P Assessment and plan (1) Major depressive disorder, recurrent: (2) PTSD (post-traumatic stress disorder): (3) Cluster B personality disorder in adult: (4) Intentional overdose: Qualifiers: Encounter type: initial encounter Qualified Code(s): T50.902A - Poisoning by unspecified drugs, medicaments and biological substances, intentional self-harm, initial encounter (5) Anxiety: (6) Unspecified psychosis: (7) Hallucinations: (8) Tobacco use disorder: (9) Cannabis use disorder: Plan This is a 18-year-old white male with a long history of mental health issues, trauma and psychiatric care who presents after being discharged from another psychiatric facility and taken an overdose essentially returning almost immediately to the hospital now being transferred to the neuropsychiatric unit from the ICU. The patient has a complex mental health history with symptoms of psychosis, depression, and anxiety. The patient's mental health appears to be unstable, with recent suicide attempts and hospitalizations. The patient's medication regimen may need adjustment, as they report that their body often stops responding to medication. 1. Reduce ambien to 2.5mg at night for sleep. Continue cymbalta to 60mg daily for depression and anxiety. 2. Encourage individual, group and milieu therapies. 3. Encourage sober living treatment after discharge at the highest level care to which he is willing to commit. 4. 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 5. Continue every 15 minute checks for safety. Involuntary Hold Information 2 96 Hour Hold: 96 Hour Involuntary Admission: Yes 96 Hour Hold Ending Date: 06/06/24 96 Hour Hold Ending Time: 03:35 Attestations NPU 2 Medical Necessity Statement*: Inpatient hospitalization is medically necessary and?the clinically appropriate intervention at this time.? We will monitor/initiate medications and make changes as indicated.? Likely discharge tommorow. Coding Level of Care Code Acute Code for [facility] Fwd Diagnoses Major depressive disorder, recurrent F33.9 PTSD (post-traumatic stress disorder) F43.10 Cluster B personality disorder in adult F60.9 Intentional overdose T50.902A Encounter type: initial encounter Anxiety F41.9 Unspecified psychosis F29 Hallucinations R44.3 Tobacco use disorder F17.200 Cannabis use disorder F12.90
[2024-06-18 20:18] VITALS: BP 114/74; PULSE 94; RESP 18; TEMP 36.8; O2SAT 95
[2024-06-18] MEDS: zolpidem 5 mg Tablet 2.5 MG PO (20:56)
[2024-06-18] MEDS: hyDROXYzine 25 mg Capsule PO (22:38)
[2024-06-19 06:32] VITALS: BP 102/59; PULSE 88; RESP 16; O2SAT 97
[2024-06-19] MEDS: pantoprazole DR 40 mg Tablet PO (08:16)
[2024-06-19] MEDS: nicotine 4 mg lozenge 8 MG MUCOUS MEM ×3 (08:16→13:56)
[2024-06-19] MEDS: duloxetine 30 mg Capsule 60 MG PO (08:16)
--- NOTE | 2024-06-19 09:16 | PC.NURSE ---
IN DAY ROOM. PT IS NOTED TO BE ANXIOUS AND STATES HE IS DISCHARGING TO HIS DADS TODAY. RATES ANXIETY6/10 AND DEPRESSION 0/10. DENIES PAIN. DENIES SI/HI AT THIS TIME. CONTINUES TO ENDORSE HEARING VOICES AND SEEING SHADOWS. STATES MY VOICES ARE QUIETER THO AND I'M ONLY SEEING SHADOWS. PT STATES HE HAS NO GOAL. ALL QUESTIONS ANSWERED AND SUPPORT VOICED.
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
[2024-06-19 13:57] VITALS: BP 102/59; PULSE 88; RESP 16; TEMP 36.8; O2SAT 97
== END 2024-06-19 15:01 | disposition home or self-care (01) | DRG 918 ==
LOC: ER 03:57 → ICU 04:28 → NP 06-03 09:38
PROVIDERS: Internal Medicine; Admitting Provider Internal Medicine; Emergency Provider Emergency Medicine; Visit Provider Psychiatry & Neurology Psychiatry
DX: T43.222A Poisoning by selective serotonin reuptake inhibitors, intentional self-harm, initial encounter (principal); F33.9 Major depressive disorder, recurrent, unspecified; R44.0 Auditory hallucinations; F41.9 Anxiety disorder, unspecified; F17.210 Nicotine dependence, cigarettes, uncomplicated; F17.290 Nicotine dependence, other tobacco product, uncomplicated; F12.90 Cannabis use, unspecified, uncomplicated; F60.9 Personality disorder, unspecified; F43.10 Post-traumatic stress disorder, unspecified; Z91.51 Personal history of suicidal behavior; Z81.8 Family history of other mental and behavioral disorders
CPT/HCPCS: 36415; 73110; 73130; 80048; 80053; 80306; 80307; 81003; 83735; 84443; 85025; 93005; 96372; 97150; 97165; G0378; J1200; J1630; J2060; J7030

== ENCOUNTER 2024-06-29 00:23 | Emergency (ER) | payer MEDICAID, SELFPAY ==
[2024-06-29 00:19] VITALS: BMI 28.1
[2024-06-29 00:33] LABS: Basophils % 0.5 %; Eosinophils # 0.1 10^3/uL (0.0-0.8); Eosinophils % 1.6 %; Hematocrit 39.2 % (37-53); Lymphocytes # 1.8 10^3/uL (1.5-6.5); Lymphocytes % 22.5 %; Mean Corpuscular HGB Conc 33.7 g/dL (30-55); Mean Corpuscular Hemoglobin 28.6 pg (27-33); Mean Corpuscular Volume 84.8 fl (82-101); Monocytes # 0.6 10^3/uL (0.2-0.9); Monocytes % 7.2 %; Neutrophils # 5.55 10^3/uL (1.8-8.0); Neutrophils % 67.8 %; Nucleated Red Blood Cells % 0 %; Platelet Count 202 10^3/cmm (157-399); Red Blood Count 4.62 10^6/uL (3.85-5.65); Red Cell Distribution Width 12.3 % (12.1-15.1); White Blood Count 8.18 10^3/uL (4.5-13.0)
[2024-06-29 00:55] LABS: Alanine Aminotransferase 16 U/L (0-41); Albumin Level 4.4 g/dL (3.5-5.2); Alkaline Phosphatase 64 U/L (40-130); Anion Gap 14.7 (5-19); Aspartate Amino Transferase 12 U/L (0-40); Blood Urea Nitrogen 7 mg/dL (6-20); Carbon Dioxide 28 mmol/L (22-29); Chloride 101 mmol/L (98-107); Creatinine Clr Calc Pharmacy 133.9237; Globulin 2.6 g/dL (1.3-4.6); Glomerular Filtration Rate 107.6 mL/min (90-130); Glucose 108 mg/dL (65-115); Osmolality Calculated 289 mOsm/kg (285-295); Potassium 3.7 mmol/L (3.5-5.1); Sodium 140 mmol/L (136-145); Total Bilirubin 0.4 mg/dL (0.15-1.2)
[2024-06-29 00:57] LABS: Acetaminophen < 5.0 ug/mL (10-30); Alcohol Level < 10 mg/dL (0-10); Salicylate < 0.3 mg/dL (3-10)
[2024-06-29 01:06] VITALS: BP 135/91; PULSE 77; RESP 16; O2SAT 97
--- NOTE | 2024-06-29 01:38 | W.ED.PSYCHS ---
HPI - Psych General: Chief Complaint: Psychiatric Symptoms Stated Complaint: Suicidal ideation Time Seen by Provider: 06/29/24 01:27 History of Present Illness: Patient presents to the ER with complaints of hearing voices and these voices tell him to hurt himself and other people. Patient does not know if he can withstand not doing what the voices tell him to do. Patient has a diagnosis recently of schizophrenia and attempted overdose with Paxil. He also endorses visual hallucinations and a history of self-harm and previous suicide attempt. He does have a history of anxiety and depression also. Related Data Previous Rx's Medication Instructions Recorded duloxetine 60 mg capsule,delayed 60 mg PO DAILY #30 caps 06/19/24 release (Cymbalta) paliperidone palmitate 117 mg/0.75 117 mg (0.75 mL) IM Q30D #0.75 mL 06/19/24 mL intramuscular syringe (Invega Sustenna) pantoprazole 40 mg tablet,delayed 40 mg PO DAILY 30 days #30 tabs 06/19/24 release zolpidem 5 mg tablet 2.5 mg (1/2 x 5 mg) PO BEDTIME 30 06/19/24 days #15 tabs Allergies Allergy/AdvReac Type Severity Reaction Status Date / Time No Known Allergies Allergy Verified 06/25/24 10:14 PFS ED PFSH: Medical History Tobacco use disorder Depression Anxiety Surgical History No pertinent past surgical history Family History Other Bipolar disorder Depression Schizophrenia Social History Smoking and tobacco/nicotine status: current every day tobacco/nicotine user Alcohol intake: never Substance/Drug Use: never Physical Exam Const: COMMON NORMALS: no acute distress, average body habitus, patient oriented x3, no limitations, healthy appearing, alert and well nourished HENMT: COMMON NORMALS: normocephalic, atraumatic, hearing grossly normal bilaterally, external ears normal, Normal external nose present and moist oral mucous membranes HEAD & SCALP: normocephalic and atraumatic NOSE: Normal external nose present EXTERNAL EAR: Yes external ears normal Neck/C-Spine: COMMON NORMALS: no JVD Chest: COMMONS NORMALS: normal inspection of the chest and normal palpation of entire chest wall Resp: COMMON NORMALS: normal respiratory effort, No retractions, No use of accessory muscles and clear to auscultation bilaterally AUSCULTATION: clear to auscultation bilaterally Cardio: COMMON NORMALS: no JVD, regular rate, regular rhythm, S1 normal heart sound present, S2 normal heart sound present, No gallops present (Cardio), No clicks present (Cardio), No murmurs present (Cardio) and No rub (Cardio) RATE: regular rate RHYTHM: regular rhythm HEART SOUNDS: S1 normal heart sound present and S2 normal heart sound present GI: COMMON NORMALS: Normal to inspection, nondistended, normoactive bowel sounds present, Soft to palpation, non-tender, No hepatosplenomegaly present and no masses PALPATION: Yes Soft to palpation and Yes No hepatosplenomegaly present Neuro: COMMON NORMALS: patient oriented x3 SENSORIUM/ORIENTATION: Yes alert Course Vital Signs: Vital signs: Vital Signs Temperature 98.7 F 06/29/24 08:00 Pulse Rate 74 06/29/24 17:16 Respiratory Rate 12 06/29/24 08:00 Blood Pressure 135/77 06/29/24 17:16 Pulse Oximetry 98 06/29/24 17:16 Oxygen Delivery Me thod Room Air 06/29/24 15:36 MDM - Psych Medical Decision Making Patient presents to the ER with symptoms of hearing voices and seeing things that make him want to hurt people and hurt himself. Patient will be cleared from medical standpoint and then we will call around to find appropriate facility. We do not have any beds at our facility at this time. Patient accepted by Dr. Greenwood at [facility]. Medical Records I reviewed the patient's medical records. Lab Data I reviewed the patient's lab results. 06/29/24 00:28 06/29/24 00:28 Laboratory Results WBC 8.18 10^3/uL (4.5-13.0) 06/29/24 00:28 RBC 4.62 10^6/uL (3.85-5.65) 06/29/24 00:28 Hgb 13.20 g/dL (13.2-15.6) 06/29/24: Hct 39.2 % (37-53) 06/29/24 00: MCV 84.8 fl (82-101) 06/29/24 00: MCH 28.6 pg (27-33) 06/29/24: MCHC 33.7 g/dL (30-55) 06/29/24 00: RDW 12.3 % (12.1-15.1) 06/29/24 00: Plt Count 202 10^3/cmm (157-399) 06/29/24 00: MPV 9.0 fL (7.4-10.4) 06/29/24: Neut % (Auto) 67.8 % 06/29/24: Lymph % (Auto) 22.5 % 06/29/24: [place] % (Auto) 7.2 % 06/29/24: Eos % (Auto) 1.6 % 06/29/24: Baso % (Auto) 0.5 % 06/29/24 00: Neut # (Auto) 5.55 10^3/uL (1.8-8.0) 06/29/24 00: Lymph # (Auto) 1.8 10^3/uL (1.5-6.5) 06/29/24 00: [place] # (Auto) 0.6 10^3/uL (0.2-0.9) 06/29/24 00: Eos # (Auto) 0.1 10^3/uL (0.0-0.8) 06/29/24 00: Baso # (Auto) 0.0 10^3/uL (0.0-0.1) 06/29/24 00:28 Nucleated RBC % (auto) 0 % 06/29/24: Nucleated RBCs # 0.0 /100WBC 06/29/24 00:28 Sodium 140 mmol/L (136-145) 06/29/24 00: Potassium 3.7 mmol/L (3.5-5.1) 06/29/24 00: Chloride 101 mmol/L (98-107) 06/29/24 00: Carbon Dioxide 28 mmol/L (22-29) 06/29/24 00:28 Anion Gap 14.7 (5-19) 06/29/24 00:28 BUN 7 mg/dL (6-20) 06/29/24 00:28 Creatinine 0.9 mg/dL (0.7-1.2) 06/29/24 00:28 GFR Calculation 107.6 mL/min (90-130) 06/29/24 00:28 Glucose 108 mg/dL (65-115) 06/29/24 00:28 Calculated Osmolality 289 mOsm/kg (285-295) 06/29/24 00:28 Calcium 9.0 mg/dL (8.5-10.5) 06/29/24 00:28 Total Bilirubin 0.4 mg/dL (0.15-1.2) 06/29/24 00:28 AST 12 U/L (0-40) 06/29/24 00:28 ALT 16 U/L (0-41) 06/29/24 00:28 Alkaline Phosphatase 64 U/L (40-130) 06/29/24 00:28 Total Protein 7.0 g/dL (6.6-8.7) 06/29/24 00:28 Albumin 4.4 g/dL (3.5-5.2) 06/29/24 00:28 Globulin 2.6 g/dL (1.3-4.6) 06/29/24 00:28 TSH 4.35 uIU/mL (0.27-4.20) H 06/29/24 00:28 Urine Color Yellow (Yellow) 06/29/24 12: Urine Appearance Clear (CLEAR) 06/29/24 12: Urine pH 7.0 (5-7) 06/29/24 12: Ur Specific [place] 1.015 (1.005-1.030) 06/29/24 12: Urine Protein Negative (Negative) 06/29/24 12: Urine Glucose (UA) Negative (Normal) 06/29/24 12: Urine Ketones Negative (Negative) 06/29/24 12: Urine Blood Negative (Negative) 06/29/24 12: Urine Nitrate Negative (Negative) 06/29/24 12: Urine Bilirubin Negative (Negative) 06/29/24 12: Urine Urobilinogen 1.0 mg/dL (Negative) 06/29/24 12:26 Ur Leukocyte Esterase Negative (Negative) 06/29/24 12:26 Urine RBC 0-2 /hpf (0-2) 06/29/24 12:26 Urine WBC 0-5 /hpf (0-5) 06/29/24 12:26 Ur Squamous Epith Cells 0-5 /hpf (0-5) 06/29/24 12:26 Amorphous Sediment Not Reportable 06/29/24 12:26 Urine Bacteria None seen /hpf (NONE) 06/29/24 12:26 Hyaline Casts 0-4 /lpf H 06/29/24 12:26 Salicylates < 0.3 mg/dL (3-10) L 06/29/24 00:28 Urine Opiates Screen Negative ng/mL (Negative) 06/29/24 12: Acetaminophen < 5.0 ug/mL (10-30) L 06/29/24 00:28 Ur Barbiturates Screen Negative ng/mL (Negative) 06/29/24 12:26 Ur Phencyclidine Scrn Negative ng/mL (Negative) 06/29/24 12:26 Ur Amphetamines Screen Negative ng/mL (Negative) 06/29/24 12:26 U Benzodiazepines Scrn Negative ng/mL (Negative) 06/29/24 12:26 Urine Cocaine Screen Negative ng/mL (Negative) 06/29/24 12:26 U Marijuana (THC) Screen Negative ng/mL (Negative) 06/29/24 12: Ethyl Alcohol < 10 mg/dL (0-10) 06/29/24 00:28 Coronavirus (PCR) Negative (Negative) 06/29/24 05:00 Influenza A (PCR) Negative (Negative) 06/29/24 05:00 Influenza Type B (PCR) Negative (Negative) 06/29/24 05:00 RSV (PCR) Negative (Negative) 06/29/24 05:00 No radiology studies performed this visit Discharge Plan Discharge Patient Disposition: Xfer Psychiatric Hosp Clinical Impression: Suicidal ideation Condition: Stable Coding Level of Care Code 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
[2024-06-29 02:47] LABS: Thyroid Stimulating Hormone 4.35 uIU/mL (0.27-4.20)
[2024-06-29 04:00] VITALS: BP 121/78; PULSE 71; RESP 16; O2SAT 97
--- NOTE | 2024-06-29 04:56 | ECG_ITS ---
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 Measurements Intervals [place] Rate: 73 P: 43 FL: 133 QRS: 73 QRSD: 117 T: 79 QT: 374 QTc: 414 Interpretive Statements SINUS RHYTHM WITH SINUS ARRHYTHMIA MODERATE INTRAVENTRICULAR CONDUCTION DELAY [110+ ms QRS DURATION] Compared to ECG 06/02/2024 13:01:03 No significant changes Electronically Signed On 06-30-2024 14:10:42 CDT by Navjot Tanner M.D. [email or web address]
[2024-06-29 05:47] LABS: Covid PCR NEGATIVE (Negative); Influenza A NEGATIVE (Negative); Influenza B NEGATIVE (Negative); Respiratory Syncytial Virus Ce NEGATIVE (Negative)
[2024-06-29 08:00] VITALS: BP 100/50; PULSE 60; RESP 12; TEMP 37.1; O2SAT 99
[2024-06-29 12:17] VITALS: BP 126/60; PULSE 78; O2SAT 99
[2024-06-29 12:37] LABS: Bilirubin Urine Negative (Negative); Blood Urine Negative (Negative); Glucose Urine UA Negative (Normal); Ketones Urine Negative (Negative); Leukocyte Esterase Urine Negative (Negative); Nitrate Urine Negative (Negative); Protein Urine Negative (Negative); Specific Gravity, Urine 1.015 (1.005-1.030); Urine Appearance Clear (CLEAR); Urine Color Yellow (Yellow)
[2024-06-29 12:42] LABS: Add Urine Microscopic? YES; Bacteria Urine None Seen /hpf; Hyaline Casts Urine 0-4 /lpf; RBC Urine 0-2 /hpf (0-2); Squamous Epithelial Cell Urine 0-5 /hpf (0-5); WBC Urine 0-5 /hpf (0-5)
[2024-06-29 12:44] LABS: Amphetamines Screen Urine Negative (Negative); Barbiturates Screen Urine Negative (Negative); Benzodiazepines Screen Urine Negative (Negative); Cocaine Screen Urine Negative (Negative); Opiate Screen Urine Negative (Negative); PCP Screen Urine Negative (Negative); THC Screen Urine Negative (Negative)
--- NOTE | 2024-06-29 15:03 | PC.NURSE ---
[facility] [place] called asking for more hx on pt. pt agreed to giving info to facility. pt resting comfortably in bed and watching tv at this time.
[2024-06-29 15:36] VITALS: BP 135/73; PULSE 74; O2SAT 99
--- NOTE | 2024-06-29 16:13 | PC.NURSE ---
report given to JOCELYNE Becker at [facility]. transfer papers signed by pt and nurse.
[2024-06-29 17:16] VITALS: BP 135/77; PULSE 74; O2SAT 98
== END 2024-06-29 17:15 ==
PROVIDERS: Emergency Medicine; Emergency Provider Emergency Medicine
DX: R45.851 Suicidal ideations (principal); Z11.52 Encounter for screening for COVID-19; Z72.0 Tobacco use
CPT/HCPCS: 0241U; 36415; 80053; 80306; 80307; 81001; 84443; 85025; 93005; 96374; 99285